=== PATIENT | male | born 1965 | race Caucasian/White ===

== ENCOUNTER 2016-11-21 02:00 | Inpatient (IN) | payer MEDICARE, OTHER ==
[2016-11-21] MEDS ORDERED: HYDROmorphone 1 MG/ML 1 ML SYRINGE IVP STA ×2 (02:33→04:25)
[2016-11-21] MEDS ORDERED: SODIUM CHLORIDE 0.9% 1,000 ML IV STA (02:33)
[2016-11-21] MEDS ORDERED: ONDANSETRON 4 MG/2 ML VIAL IVP STA (02:33)
[2016-11-21 02:56] LABS: Basophils # (A) 0.1 k/uL (0-0.2); Basophils % (A) 0 %; CH 37.3; CHCM 34.8; Eosinophils # (A) 0.1 k/uL (0-0.7); Eosinophils % (A) 1 %; HCT 37.6 % (39.0-53.0); HDW 2.08; HGB 12.8 gm/dL (13.0-17.5); Luc # (Auto) 0.24; Luc % (Auto) 2; Lymphocytes # (A) 1.5 k/uL (1.0-4.8); Lymphocytes % (A) 12 %; MCH 36.5 pg (25.0-35.0); MCHC 33.9 g/dL (31.0-37.0); MCV 107.6 fL (80.0-100.0); Macrocytosis Moderate; Mean Platelet Volume 8.4; Monocytes # (A) 1.3 k/uL (0-1.0); Monocytes % (A) 10 %; Neutrophils # (A) 9.3 k/uL (1.3-7.7); Neutrophils % (A) 75 %; RDW 14.8 % (11.5-15.5); WBC 12.4 k/uL (3.8-10.6); WBC (Perox) 12.88
[2016-11-21] MEDS ORDERED: RX INFO: IV CONTRAST WAS GIVEN 1 EACH MISC MISCELLANE PRN (03:05)
--- NOTE | 2016-11-21 03:07 | ED ---
General Adult HPI - General Source: patient, RN notes reviewed Mode of arrival: wheelchair Limitations: no limitations <Gabi Malcolm - Last Filed: 11/21/16 04:07> <Josué Bergeron - Last Filed: 11/21/16 05:37> - General Chief complaint: Abdominal Pain Stated complaint: abd pain Time Seen by Provider: 11/21/16 02:33 - History of Present Illness Initial comments: 50-year-old male presents to the emergency Department chief complaint abdominal pain. Patient states she been going on for about 2 days with nausea vomiting and looser stool. Patient states he has episodes where his abdominal pain flares up and they never seem to find the cause. Patient denies any fever or chills. Patient states is worse with his typical flareup. Patient states that she's diffusely in the abdomen and radiates to both sides of the back.Patient denies any recent fever, chills, shortness of breath, chest pain, back pain, numbness or tingling, dysuria or hematuria, constipation or diarrhea, headaches or visual changes, or any other current symptoms. (Gabi Malcolm) - Related Data Home Medications Medication Instructions Recorded Confirmed FLUoxetine HCL [PROzac] 40 mg PO BID 01/17/16 01/17/16 clonazePAM [KlonoPIN] 0.5 mg PO BID 01/17/16 01/17/16 Allergies Allergy/AdvReac Type Severity Reaction Status Date / Time No Known Allergies Allergy Verified 11/21/16 02:21 Review of Systems ROS Other: All systems not noted in ROS Statement are negative. <Gabi Malcolm - Last Filed: 11/21/16 04:07> ROS Other: All systems not noted in ROS Statement are negative. <Josué Bergeron - Last Filed: 11/21/16 05:37> ROS Statement: Those systems with pertinent positive or pertinent negative responses have been documented in the HPI. Past Medical History Additional Past Medical History / Comment(s): back deteriorating spine History of Any Multi-Drug Resistant Organisms: None Reported Past Surgical History: No Surgical Hx Reported Past Psychological History: No Psychological Hx Reported Smoking Status: Current every day smoker Past Alcohol Use History: Occasional Past Drug Use History: None Reported <Gabi Malcolm - Last Filed: 11/21/16 04:07> General Exam Limitations: no limitations <Gabi Malcolm - Last Filed: 11/21/16 04:07> Course <Gabi Malcolm - Last Filed: 11/21/16 04:07> <Josué Bergeron - Last Filed: 11/21/16 05:37> Vital Signs 11/21/16 11/21/16 11/21/16 02:19 03:29 04:22 Temperature 99.3 F Pulse Rate 99 95 94 Respiratory 16 18 20 Rate Blood Pressure 150/81 182/90 174/93 O2 Sat by Pulse 100 99 100 Oximetry - Reevaluation(s) Reevaluation #1: 11/21/16 03:52 On further questioning the patient does admit to history of alcohol abuse in the past. He states he did have a drink today which did happen prior to the increased abdominal pain and nausea vomiting. (Gabi Malcolm) Reevaluation #2: 11/21/16 04:07 This case will be signed out to Dr. Bergeron. (Gabi Malcolm) Medical Decision Making - Lab Data Result diagrams: 11/21/16 02:45 11/21/16 02:45 <Gabi Malcolm - Last Filed: 11/21/16 04:07> - Lab Data Result diagrams: 11/21/16 02:45 11/21/16 02:45 <Josué Bergeron - Last Filed: 11/21/16 05:37> - Medical Decision Making 50-year-old male presents for diffuse abdominal pain. (Gabi Malcolm) 50-year-old male presents with nausea vomiting and epigastric abdominal pain. Patient is tender in the epigastrium, no rebound or guarding. He does admit to drinking alcohol the past 24 hours. He has no history of pancreatitis. Laboratory studies reveal a mildly elevated white blood cell count 0.5, hemoglobin is stable. Lipase is elevated at 786, as well as amylase. CT is obtained and does show fat stranding adjacent to the pancreatic head as well as a pancreatic pseudocyst. Patient will be admitted for symptomatically treatment. He'll be kept nothing by mouth. General surgery is placed on consult. Diagnosis: Acute pancreatitis, with pseudocyst (Josué Bergeron) - Lab Data Lab Results 11/21/16 11/21/16 11/21/16 Range/Units 02:45 02:45 02:45 WBC 12.4 H (3.8-10.6) k/uL RBC 3.50 L (4.30-5.90) m/uL Hgb 12.8 L (13.0-17.5) gm/dL Hct 37.6 L (39.0-53.0) % MCV 107.6 H (80.0-100.0) fL MCH 36.5 H (25.0-35.0) pg MCHC 33.9 (31.0-37.0) g/dL RDW 14.8 (11.5-15.5) % Plt Count 381 (150-450) k/uL Neutrophils % 75 % Lymphocytes % 12 % Monocytes % 10 % Eosinophils % 1 % Basophils % 0 % Neutrophils # 9.3 H (1.3-7.7) k/uL Lymphocytes # 1.5 (1.0-4.8) k/uL Monocytes # 1.3 H (0-1.0) k/uL Eosinophils # 0.1 (0-0.7) k/uL Basophils # 0.1 (0-0.2) k/uL Macrocytosis Moderate Sodium 135 L (137-145) mmol/L Potassium 4.1 (3.5-5.1) mmol/L Chloride 102 (98-107) mmol/L Carbon Dioxide 22 (22-30) mmol/L Anion Gap 11 mmol/L BUN 7 L (9-20) mg/dL Creatinine 0.60 L (0.66-1.25) mg/dL Est GFR (MDRD) Af Amer >60 (>60 ml/min/1.73 sqM) Est GFR (MDRD) Non-Af >60 (>60 ml/min/1.73 sqM) Glucose 107 H (74-99) mg/dL Plasma Lactic Acid Jamel 0.6 L (0.7-2.0) mmol/L Calcium 10.1 (8.4-10.2) mg/dL Total Bilirubin 0.3 (0.2-1.3) mg/dL AST 24 (17-59) U/L ALT 46 (21-72) U/L Alkaline Phosphatase 90 (38-126) U/L Total Protein 7.2 (6.3-8.2) g/dL Albumin 4.3 (3.5-5.0) g/dL Amylase 354 H* (30-110) U/L Lipase 786 H (23-300) U/L Urine Color Urine Appearance (Clear) Urine pH (5.0-8.0) Ur Specific [place] (1.001-1.035) Urine Protein (Negative) Urine Glucose (UA) (Negative) Urine Ketones (Negative) Urine Blood (Negative) Urine Nitrite (Negative) Urine Bilirubin (Negative) Urine Urobilinogen (<2.0) mg/dL Ur Leukocyte Esterase (Negative) Stool Occult Blood (Negative) 11/21/16 11/21/16 Range/Units 02:45 03:58 WBC (3.8-10.6) k/uL RBC (4.30-5.90) m/uL Hgb (13.0-17.5) gm/dL Hct (39.0-53.0) % MCV (80.0-100.0) fL MCH (25.0-35.0) pg MCHC (31.0-37.0) g/dL RDW (11.5-15.5) % Plt Count (150-450) k/uL Neutrophils % % Lymphocytes % % Monocytes % % Eosinophils % % Basophils % % Neutrophils # (1.3-7.7) k/uL Lymphocytes # (1.0-4.8) k/uL Monocytes # (0-1.0) k/uL Eosinophils # (0-0.7) k/uL Basophils # (0-0.2) k/uL Macrocytosis Sodium (137-145) mmol/L Potassium (3.5-5.1) mmol/L Chloride (98-107) mmol/L Carbon Dioxide (22-30) mmol/L Anion Gap mmol/L BUN (9-20) mg/dL Creatinine (0.66-1.25) mg/dL Est GFR (MDRD) Af Amer (>60 ml/min/1.73 sqM) Est GFR (MDRD) Non-Af (>60 ml/min/1.73 sqM) Glucose (74-99) mg/dL Plasma Lactic Acid Jamel (0.7-2.0) mmol/L Calcium (8.4-10.2) mg/dL Total Bilirubin (0.2-1.3) mg/dL AST (17-59) U/L ALT (21-72) U/L Alkaline Phosphatase (38-126) U/L Total Protein (6.3-8.2) g/dL Albumin (3.5-5.0) g/dL Amylase (30-110) U/L Lipase (23-300) U/L Urine Color Light Yellow Urine Appearance Clear (Clear) Urine pH 6.5 (5.0-8.0) Ur Specific [place] 1.050 H (1.001-1.035) Urine Protein Trace H (Negative) Urine Glucose (UA) Negative (Negative) Urine Ketones 1+ H (Negative) Urine Blood Negative (Negative) Urine Nitrite Negative (Negative) Urine Bilirubin Negative (Negative) Urine Urobilinogen <2.0 (<2.0) mg/dL Ur Leukocyte Esterase Negative (Negative) Stool Occult Blood Negative (Negative) Disposition <Gabi Malcolm - Last Filed: 11/21/16 04:07> Decision to Admit Reason: Admit from EC Decision Date: 11/21/16 Decision Time: 03:30 <Josué Bergeron - Last Filed: 11/21/16 05:37> Clinical Impression: Pancreatitis, Pancreatic pseudocyst Disposition: ADMITTED IP TO THIS [facility] Condition: Stable Referrals: Jessica Samuels DO [Primary Care Provider] - 1-2 days
[2016-11-21 03:09] LABS: ALT 46 U/L (21-72); AST 24 U/L (17-59); Alkaline Phosphatase 90 U/L (38-126); Anion Gap 11 mmol/L; Blood Urea Nitrogen 7 mg/dL (9-20); Calcium 10.1 mg/dL (8.4-10.2); Carbon Dioxide 22 mmol/L (22-30); Chloride 102 mmol/L (98-107); Glucose 107 mg/dL (74-99); Non-African American GFR(MDRD) >60 (>60 ml/min/1.73 sqM); Potassium 4.1 mmol/L (3.5-5.1); Sodium 135 mmol/L (137-145); Total Bilirubin 0.3 mg/dL (0.2-1.3); Total Protein 7.2 g/dL (6.3-8.2)
[2016-11-21 03:17] LABS: Amylase 354 U/L (30-110)
[2016-11-21 04:05] LABS: Appearance,Urine Clear (Clear); Bilirubin,Urine Negative (Negative); Glucose,Urine (UA) Negative (Negative); Ketones,Urine 1+ (Negative); Leukocyte Esterase,Urine Negative (Negative); Nitrite,Urine Negative (Negative); PH, Urine 6.5 (5.0-8.0); Protein,Urine Trace (Negative); UA Billing (MACRO vs. MICRO) CHEM; Urobilinogen,Urine <2.0 mg/dL (<2.0)
--- NOTE | 2016-11-21 05:14 | CT ---
EXAM: CT Abdomen and Pelvis With Intravenous Contrast CLINICAL HISTORY: Pain. TECHNIQUE: Axial computed tomography images of the abdomen and pelvis with intravenous contrast. Coronal and sagittal reformatted images were created and reviewed. CTDI is 5.00 mGy and DLP is 379.10 mGy-cm. This CT exam was performed using one or more of the following dose reduction techniques: automated exposure control, adjustment of the mA and/or kV according to patient size, and/or use of iterative reconstruction technique. COMPARISON: No relevant prior studies available. FINDINGS: Lower thorax: Left lower lobe granulomas. No acute abnormality in the visualized lower chest. ABDOMEN: Liver: Liver measures 18.2 cm in craniocaudal dimension. Few hepatic granulomas. No evidence of hepatic mass. Gallbladder and bile ducts: Partially contracted gallbladder. No radiopaque gallstones. No biliary dilation. Pancreas: Stranding/fluid adjacent to the pancreatic head with fluid collection inseparable from the pancreatic head measuring approximately 2. 5 x 2.6 x 5.0 cm suspicious for pseudocyst. No significant pancreatic ductal dilation. Spleen: Splenic granulomata. No splenomegaly. Adrenals: Unremarkable. No mass. Kidneys and ureters: No hydronephrosis or ureteral calculus. No enhancing renal mass. Stomach and bowel: No evidence of bowel obstruction. No significant bowel wall thickening. Appendix: Appendix not visualized. PELVIS: Bladder: Mild bladder wall thickening. Reproductive: Prostate not well seen due to artifact. ABDOMEN and PELVIS: Intraperitoneal space: No free air. No significant ascites. Bones/joints: Total hip arthroplasties bilaterally with associated artifact. No evidence of acute fracture. Soft tissues: Unremarkable. Vasculature: Atherosclerotic vascular disease. No abdominal aortic aneurysm. Lymph nodes: Subcentimeter peripancreatic lymph nodes are present. No significant lymphadenopathy. IMPRESSION: 1. Stranding/fluid adjacent to the pancreatic head with fluid collection inseparable from the pancreatic head measuring approximately 2.5 x 2.6 x 5.0 cm suspicious for pseudocyst. Recommend clinical correlation and correlation with pancreatic enzyme levels. Recommend follow-up imaging to assess for resolution and exclude other underlying pathology. 2. Mild bladder wall thickening which may be related to underdistention or cystitis. Correlate with urinalysis as clinically warranted. 3. No bowel obstruction or free air. Appendix not visualized.
[2016-11-21] MEDS ORDERED: NALOXONE 0.4 MG/ML 1 ML VIAL IV PRN (05:31)
[2016-11-21] MEDS: SODIUM CHLORIDE 0.9% 1,000 ML IV SCH ×3 (05:56→20:52)
[2016-11-21 06:43] VITALS: BMI 19.1
[2016-11-21] MEDS: HYDROmorphone 1 MG/ML 1 ML SYRINGE IV PRN ×6 (07:44→22:58)
[2016-11-21] MEDS: PANTOPRAZOLE 40 MG/10 ML VIAL IV SCH (07:46)
[2016-11-21] MEDS ORDERED: GABAPENTIN 300 MG CAP PO PRN (12:32)
--- NOTE | 2016-11-21 12:35 | P.HPIM ---
History of Present Illness H&P Date: 11/21/16 Chief Complaint: Abdominal pain This is a 50-year-old gentleman who presented to the hospital with severe abdominal pain. Patient said that is been having issues with pain on and off for the past year. For the past 2 days he noted that his pain was getting significantly worse. He describe as pain as sharp and 10 out of 10 in severity. He said that the pain is all over his abdomen. This pain was associated with severe nausea and one episode of vomiting. He said that he's having normal bowel movement otherwise. He reported a heavy alcohol abuse history for many many years. That he said for the past 10 years he was cutting down and currently is only drinking 1 beer maybe once a week. He said that he was never diagnosed with any problems in his abdomen in the past and was never hospitalized for several problems. He was evaluated in the emergency room and was found to have symptoms of acute pancreatitis and was admitted to the hospital for further evaluation. Review of Systems Review of system: 14 points review of systems were obtained and were negative except to what were mentioned in the HPI. Past Medical History Past Medical History: COPD Additional Past Medical History / Comment(s): back deteriorating spine History of Any Multi-Drug Resistant Organisms: None Reported Past Surgical History: No Surgical Hx Reported, Orthopedic Surgery Additional Past Surgical History / Comment(s): both hips replaced 2016 Past Psychological History: No Psychological Hx Reported Smoking Status: Current every day smoker Past Alcohol Use History: Occasional Past Drug Use History: None Reported Medications and Allergies Home Medications Medication Instructions Recorded Confirmed Type Albuterol Sulfate [Proair Hfa] 2 puff INHALATION RT-Q6H PRN 11/21/16 11/21/16 History Anxiety Med Unknown 1 tab PO BID 11/21/16 11/21/16 History Budesonide-Formot 160-4.5 Mcg 1 puff INHALATION RT-BID 11/21/16 11/21/16 History [Symbicort 160-4.5 Mcg Inhaler] Divalproex [Depakote] 500 mg PO BID 11/21/16 11/21/16 History Gabapentin [Neurontin] 300 mg PO BID PRN 11/21/16 11/21/16 History Hydrocodone/Acetaminophen [[place] 1 tab PO Q4H PRN 11/21/16 11/21/16 History 10-325] Allergies Allergy/AdvReac Type Severity Reaction Status Date / Time No Known Allergies Allergy Verified 11/21/16 09:02 Physical Exam Vitals: Vital Signs Temp Pulse Pulse Resp BP BP Pulse Ox 11/21/16 06:26 98.3 F 95 16 146/91 100 11/21/16 04:22 94 20 174/93 100 11/21/16 03:29 95 18 182/90 99 11/21/16 02:19 99.3 F 99 16 150/81 100 Intake and Output 11/20/16 11/21/16 11/21/16 22:59 06:59 14:59 Other: Voiding Method Toilet Urinal Weight 52.163 kg General: The patient is awake and alert, in no distress Eye: there is normal conjunctiva bilaterally. Neck: The neck is supple, there is no JVD. Cardiovascular: Normal S1-S2, no S3-S4, no murmurs. Respiratory: Lungs clear to auscultation bilaterally Gastrointestinal: Abdomen is soft, with moderate tenderness to palpation all over the abdomen Musculoskeletal: There is no pedal edema. Neurological:. Speech is normal. Skin: Skin is warm and dry Results CBC & Chem 7: 11/21/16 02:45 11/21/16 02:45 Labs: Abnormal Lab Results - Last 24 Hours (Table) 11/21/16 11/21/16 11/21/16 Range/Units 02:45 02:45 02:45 WBC 12.4 H (3.8-10.6) k/uL RBC 3.50 L (4.30-5.90) m/uL Hgb 12.8 L (13.0-17.5) gm/dL Hct 37.6 L (39.0-53.0) % MCV 107.6 H (80.0-100.0) fL MCH 36.5 H (25.0-35.0) pg Neutrophils # 9.3 H (1.3-7.7) k/uL Monocytes # 1.3 H (0-1.0) k/uL Sodium 135 L (137-145) mmol/L BUN 7 L (9-20) mg/dL Creatinine 0.60 L (0.66-1.25) mg/dL Glucose 107 H (74-99) mg/dL Plasma Lactic Acid Jamel 0.6 L (0.7-2.0) mmol/L Amylase 354 H* (30-110) U/L Lipase 786 H (23-300) U/L Ur Specific [place] (1.001-1.035) Urine Protein (Negative) Urine Ketones (Negative) 11/21/16 Range/Units 03:58 WBC (3.8-10.6) k/uL RBC (4.30-5.90) m/uL Hgb (13.0-17.5) gm/dL Hct (39.0-53.0) % MCV (80.0-100.0) fL MCH (25.0-35.0) pg Neutrophils # (1.3-7.7) k/uL Monocytes # (0-1.0) k/uL Sodium (137-145) mmol/L BUN (9-20) mg/dL Creatinine (0.66-1.25) mg/dL Glucose (74-99) mg/dL Plasma Lactic Acid Jamel (0.7-2.0) mmol/L Amylase (30-110) U/L Lipase (23-300) U/L Ur Specific [place] 1.050 H (1.001-1.035) Urine Protein Trace H (Negative) Urine Ketones 1+ H (Negative) Thrombosis Risk Factor Assmnt - Choose All That Apply Each Factor Represents 1 point: Abnormal pulmonary function (COPD), Age 41-60 years Thrombosis Risk Factor Assessment Total Risk Factor Score: 2 Thrombosis Risk Factor Assessment Level: Low Risk Assessment and Plan Plan: 1. Acute pancreatitis 2. Suspected large pseudocyst on computed tomography scan of the abdomen 3. History of heavy alcohol abuse Today, I reviewed his medication list the lab work results. Continue nothing by mouth. IV fluid hydration. Antiemetic and pain control as needed. Awaiting general surgery evaluation. We'll check fasting lipid profile to rule out hypertriglyceridemia. I would wait on ordering ultrasound of the liver until seen by surgery. Repeat lab work in the morning.
[2016-11-21] MEDS: ONDANSETRON 4 MG/2 ML VIAL IVP PRN (16:51)
[2016-11-21] MEDS: HEPARIN SODIUM,PORCINE 5,000 UNIT/ML 1 ML VIAL SQ SCH (20:52)
[2016-11-21] MEDS: DIVALPROEX 500 MG TABLET.DR PO SCH (20:52)
[2016-11-22] MEDS: ONDANSETRON 4 MG/2 ML VIAL IVP PRN ×3 (00:58→19:48)
[2016-11-22] MEDS: HYDROmorphone 1 MG/ML 1 ML SYRINGE IV PRN ×5 (01:47→16:16)
[2016-11-22] MEDS: SODIUM CHLORIDE 0.9% 1,000 ML IV SCH ×4 (04:37→19:44)
[2016-11-22 08:18] LABS: ALT 41 U/L (21-72); AST 30 U/L (17-59); Alkaline Phosphatase 74 U/L (38-126); Anion Gap 8 mmol/L; Blood Urea Nitrogen 4 mg/dL (9-20); Carbon Dioxide 24 mmol/L (22-30); Chloride 107 mmol/L (98-107); Cholesterol 157 mg/dL (<200); Glucose 52 mg/dL (74-99); HDL Cholesterol 47 mg/dL (40-60); Non-African American GFR(MDRD) >60 (>60 ml/min/1.73 sqM); Potassium 4.8 mmol/L (3.5-5.1); Sodium 139 mmol/L (137-145); Total Bilirubin 0.6 mg/dL (0.2-1.3); Total Protein 6.3 g/dL (6.3-8.2)
[2016-11-22 08:28] LABS: Basophils # (A) 0.1 k/uL (0-0.2); Basophils % (A) 1 %; CH 35.6; CHCM 32.5; Eosinophils # (A) 0.1 k/uL (0-0.7); Eosinophils % (A) 1 %; HCT 33.7 % (39.0-53.0); HGB 11.3 gm/dL (13.0-17.5); Luc # (Auto) 0.27; Luc % (Auto) 5; Lymphocytes # (A) 2.3 k/uL (1.0-4.8); Lymphocytes % (A) 37 %; MCH 36.6 pg (25.0-35.0); MCHC 33.4 g/dL (31.0-37.0); MCV 109.7 fL (80.0-100.0); Macrocytosis Marked; Monocytes # (A) 0.7 k/uL (0-1.0); Monocytes % (A) 12 %; Neutrophils # (A) 2.8 k/uL (1.3-7.7); Neutrophils % (A) 45 %; RBC 3.07 m/uL (4.30-5.90); RDW 14.1 % (11.5-15.5); WBC 6.1 k/uL (3.8-10.6); WBC (Perox) 6.18
[2016-11-22] MEDS: DIVALPROEX 500 MG TABLET.DR PO SCH ×2 (09:59→20:00)
[2016-11-22] MEDS: HEPARIN SODIUM,PORCINE 5,000 UNIT/ML 1 ML VIAL SQ SCH ×2 (11:01→20:00)
[2016-11-22] MEDS: PANTOPRAZOLE 40 MG/10 ML VIAL IV SCH (11:03)
[2016-11-22 15:01] VITALS: BP 91/54; PULSE 85; RESP 16; TEMP 97.6
--- NOTE | 2016-11-22 17:21 | P.GSCN ---
History of Present Illness Consult date: 11/22/16 Reason for Consult: pancreatitis History of present illness: this is a 50-year-old male who sees Dr. Jessica Samuels is an outpatient. Patient was admitted to the hospital under Dr. gunn service. Patient has a admitting diagnosis proctitis. He describes epigastric pain on admission. He states his pain is slightly improved. Review of Systems - Constitutional Reports as per HPI Past Medical History Past Medical History: COPD Additional Past Medical History / Comment(s): back deteriorating spine History of Any Multi-Drug Resistant Organisms: None Reported Past Surgical History: No Surgical Hx Reported, Orthopedic Surgery Additional Past Surgical History / Comment(s): both hips replaced 2016 Past Psychological History: No Psychological Hx Reported Smoking Status: Current every day smoker Past Alcohol Use History: Occasional Past Drug Use History: None Reported Medications and Allergies Home Medications Medication Instructions Recorded Confirmed Type Albuterol Sulfate [Proair Hfa] 2 puff INHALATION RT-Q6H PRN 11/21/16 11/22/16 History Budesonide-Formot 160-4.5 Mcg 1 puff INHALATION RT-BID 11/21/16 11/22/16 History [Symbicort 160-4.5 Mcg Inhaler] Divalproex [Depakote] 500 mg PO BID 11/21/16 11/22/16 History Gabapentin [Neurontin] 300 mg PO BID PRN 11/21/16 11/22/16 History Hydrocodone/Acetaminophen [[place] 1 tab PO Q4H PRN 11/21/16 11/22/16 History 10-325] OXcarbazepine [Trileptal] 300 mg PO BID 11/22/16 11/22/16 History Omeprazole 20 mg PO DAILY 11/22/16 11/22/16 History Sertraline [Zoloft] 100 mg PO DAILY 11/22/16 11/22/16 History tiZANidine HCL [Zanaflex] 4 mg PO BID PRN 11/22/16 11/22/16 History Allergies Allergy/AdvReac Type Severity Reaction Status Date / Time No Known Allergies Allergy Verified 11/21/16 09:02 Surgical - Exam Vital Signs Temp Pulse Resp BP Pulse Ox 99.3 F 99 16 150/81 100 11/21/16 02:19 11/21/16 02:19 11/21/16 02:19 11/21/16 02:19 11/21/16 02:19 - General well developed, no distress - Eyes PERRL - ENT normal pinna - Neck no masses - Respiratory normal expansion - Cardiovascular Rhythm: regular - Abdomen mild epigastric tenderness Abdomen: soft Results - Labs 11/22/16 07:12 11/22/16 07:12 Abnormal Lab Results - Last 24 Hours (Table) 11/22/16 11/22/16 Range/Units 07:12 07:12 RBC 3.07 L (4.30-5.90) m/uL Hgb 11.3 L (13.0-17.5) gm/dL Hct 33.7 L (39.0-53.0) % MCV 109.7 H (80.0-100.0) fL MCH 36.6 H (25.0-35.0) pg BUN 4 L (9-20) mg/dL Creatinine 0.60 L (0.66-1.25) mg/dL Glucose 52 L (74-99) mg/dL Microbiology - Last 24 Hours (Table) 11/21/16 02:45 Blood Culture - Preliminary Blood No Growth after 24 hours Diabetes panel 11/22/16 Range/Units 07:12 Sodium 139 (137-145) mmol/L Potassium 4.8 (3.5-5.1) mmol/L Chloride 107 (98-107) mmol/L Carbon Dioxide 24 (22-30) mmol/L BUN 4 L (9-20) mg/dL Creatinine 0.60 L (0.66-1.25) mg/dL Glucose 52 L (74-99) mg/dL Calcium 9.0 (8.4-10.2) mg/dL AST 30 (17-59) U/L ALT 41 (21-72) U/L Alkaline Phosphatase 74 (38-126) U/L Total Protein 6.3 (6.3-8.2) g/dL Albumin 3.6 (3.5-5.0) g/dL Triglycerides 99 (<150) mg/dL HDL Cholesterol 47 (40-60) mg/dL Calcium panel 11/22/16 Range/Units 07:12 Calcium 9.0 (8.4-10.2) mg/dL Albumin 3.6 (3.5-5.0) g/dL Pituitary panel 11/22/16 Range/Units 07:12 Sodium 139 (137-145) mmol/L Potassium 4.8 (3.5-5.1) mmol/L Chloride 107 (98-107) mmol/L Carbon Dioxide 24 (22-30) mmol/L BUN 4 L (9-20) mg/dL Creatinine 0.60 L (0.66-1.25) mg/dL Glucose 52 L (74-99) mg/dL Calcium 9.0 (8.4-10.2) mg/dL Adrenal panel 11/22/16 Range/Units 07:12 Sodium 139 (137-145) mmol/L Potassium 4.8 (3.5-5.1) mmol/L Chloride 107 (98-107) mmol/L Carbon Dioxide 24 (22-30) mmol/L BUN 4 L (9-20) mg/dL Creatinine 0.60 L (0.66-1.25) mg/dL Glucose 52 L (74-99) mg/dL Calcium 9.0 (8.4-10.2) mg/dL Total Bilirubin 0.6 (0.2-1.3) mg/dL AST 30 (17-59) U/L ALT 41 (21-72) U/L Alkaline Phosphatase 74 (38-126) U/L Total Protein 6.3 (6.3-8.2) g/dL Albumin 3.6 (3.5-5.0) g/dL - Imaging CT scan - abdomen: report reviewed (evidence of pancreatitis with pseudocyst formation) Assessment and Plan Plan: resolving pancreatitis with pseudocyst formation. Patient will start clear liquid diet today. He should have a another CAT scan performed in several weeks to document regression of a pseudocyst. We will follow with you.
--- NOTE | 2016-11-22 18:46 | P.PN ---
Subjective Principal diagnosis: Acute pancreatitis with pseudocyst Patient is a 50-year-old male presenting to [facility] with abdominal pain and vomiting Patient had elevated amylase and lipase suggestive of acute pancreatitis, computed tomography scan of the abdomen and pelvis was positive for evidence of pseudocyst. Patient was kept nothing by mouth he was started on clear liquid diet this evening. Patient has a known history of alcohol abuse he was counseled in length in regard to quitting alcohol. Clinically patient is doing better he is alert and oriented, abdominal pain and vomiting improved since yesterday Objective - Vital Signs Vital signs: Vital Signs Temp 97.6 F 11/22/16 15:00 Pulse 85 11/22/16 15:13 Resp 16 11/22/16 15:13 BP 91/54 11/22/16 15:00 Pulse Ox 91 L 11/22/16 15:00 Intake & Output 11/21/16 11/22/16 11/22/16 18:59 06:59 18:59 Intake Total 1000 1520 1258 Balance 1000 1520 1258 Weight 52.163 kg Intake: Intake, IV Titration 1000 1500 658 Amount Sodium Chloride 0.9% 1, 1000 1500 658 000 ml @ 125 mls/hr IV . Q8H LIZA Rx#:[id number] Oral 20 600 Other: Voiding Method Toilet Toilet Toilet Urinal Urinal Urinal # Voids 1 3 - Exam HEENT head normocephalic and atraumatic Neck is supple no JVD no goiter no lymphadenopathy Chest exam reveals a few scattered crackles no wheezing Cardiac exam reveals regular heart sounds no gallops no murmurs Abdomen is soft with mild tenderness in the epigastric area no organomegaly no palpable masses Extremity exam reveals no edema no cyanosis or clubbing - Labs CBC & Chem 7: 11/22/16 07:12 11/22/16 07:12 Labs: Abnormal Lab Results - Last 24 Hours (Table) 11/22/16 11/22/16 Range/Units 07:12 07:12 RBC 3.07 L (4.30-5.90) m/uL Hgb 11.3 L (13.0-17.5) gm/dL Hct 33.7 L (39.0-53.0) % MCV 109.7 H (80.0-100.0) fL MCH 36.6 H (25.0-35.0) pg BUN 4 L (9-20) mg/dL Creatinine 0.60 L (0.66-1.25) mg/dL Glucose 52 L (74-99) mg/dL Microbiology - Last 24 Hours (Table) 11/21/16 02:45 Blood Culture - Preliminary Blood No Growth after 24 hours Assessment and Plan Plan: #1 acute pancreatitis patient was kept nothing by mouth now he's been started on clear liquid diet will advance diet slowly while keeping an eye on his clinical symptoms and his amylase and lipase. #2 pseudocyst formation this need to be rechecked as outpatient was a computed tomography scan in the next 2-3 months, this will need to be done earlier if patient develops fever severe pain or vomiting again #3 alcohol abuse patient was counseled in length in regards to quitting drinking he seems to understand. And that he is willing to try to quit alcohol. #4 tobacco abuse patient was counseled in length in regards to quitting smoking he is requesting nicotine patch at this time. Will follow during this admission please see orders.
--- NOTE | 2017-01-16 14:06 | P.DS ---
Providers Date of admission: 11/21/16 05:34 Expected date of discharge: 12/22/16 Attending physician: Hector Benavides Consults: 11/21/16 05:32 Consult Physician Urgent Consulting Provider: Hi Chase Consult Reason/Comments: acute pancreatitis with pseudocyst Do you want consulting provider notified?: Yes Primary care physician: Jessica Samuels Hospital Course: discharge diagnosis #1 acute pancreatitis patient was kept nothing by mouth now he's been started on clear liquid diet will advance diet slowly while keeping an eye on his clinical symptoms and his amylase and lipase. #2 pseudocyst formation this need to be rechecked as outpatient was a computed tomography scan in the next 2-3 months, this will need to be done earlier if patient develops fever severe pain or vomiting again #3 alcohol abuse patient was counseled in length in regards to quitting drinking he seems to understand. And that he is willing to try to quit alcohol. #4 tobacco abuse patient was counseled in length in regards to quitting smoking he is requesting nicotine patch at this time. Hospital course Patient is a 50-year-old male presenting to [facility] with abdominal pain and vomiting Patient had elevated amylase and lipase suggestive of acute pancreatitis, computed tomography scan of the abdomen and pelvis was positive for evidence of pseudocyst. Patient was kept nothing by mouth he was started on clear liquid diet this evening. Patient has a known history of alcohol abuse he was counseled in length in regard to quitting alcohol. Patient seen and evaluated by surgical service. Patient left AGAINST MEDICAL ADVICE. Please refer to chart for further details. Please note that I am only dictating this report for Dr. Benavides. I did not see or examine the patient Patient Condition at Discharge: Stable Plan - Discharge Summary New Discharge Prescriptions: No Action Budesonide-Formot 160-4.5 Mcg [Symbicort 160-4.5 Mcg Inhaler] 1 puff INHALATION RT-BID Albuterol Sulfate [Proair Hfa] 2 puff INHALATION RT-Q6H PRN PRN Reason: Shortness Of Breath Hydrocodone/Acetaminophen [[place] 10-325] 1 tab PO Q4H PRN PRN Reason: Pain Divalproex [Depakote] 500 mg PO BID Gabapentin [Neurontin] 300 mg PO BID PRN PRN Reason: Seizures tiZANidine HCL [Zanaflex] 4 mg PO BID PRN PRN Reason: Muscle Spasm Sertraline [Zoloft] 100 mg PO DAILY Omeprazole 20 mg PO DAILY OXcarbazepine [Trileptal] 300 mg PO BID Discharge Medication List Albuterol Sulfate [Proair Hfa] 2 puff INHALATION RT-Q6H PRN 11/21/16 [History] Budesonide-Formot 160-4.5 Mcg [Symbicort 160-4.5 Mcg Inhaler] 1 puff INHALATION RT-BID 11/21/16 [History] Divalproex [Depakote] 500 mg PO BID 11/21/16 [History] Gabapentin [Neurontin] 300 mg PO BID PRN 11/21/16 [History] Hydrocodone/Acetaminophen [[place] 10-325] 1 tab PO Q4H PRN 11/21/16 [History] OXcarbazepine [Trileptal] 300 mg PO BID 11/22/16 [History] Omeprazole 20 mg PO DAILY 11/22/16 [History] Sertraline [Zoloft] 100 mg PO DAILY 11/22/16 [History] tiZANidine HCL [Zanaflex] 4 mg PO BID PRN 11/22/16 [History] Follow up Appointment(s)/Referral(s): Jessica Samuels DO [Primary Care Provider] - 1-2 days Discharge Disposition: Left Against Medical Advice
== END 2016-11-22 21:20 | disposition left against medical advice (07) | DRG 439 ==
LOC: EC 02:00 → OBSVTOIN 05:34 → INTOOBSV 05:34 → 5MS5E 05:34
PROVIDERS: ADMIT Internal Medicine; ATTEND Internal Medicine
DX: K85.90 Acute pancreatitis without necrosis or infection, unspecified (principal); K86.3 Pseudocyst of pancreas; J44.9 Chronic obstructive pulmonary disease, unspecified; F10.10 Alcohol abuse, uncomplicated; F17.200 Nicotine dependence, unspecified, uncomplicated; Z79.899 Other long term (current) drug therapy; Z96.643 Presence of artificial hip joint, bilateral; Z79.51 Long term (current) use of inhaled steroids; Z71.6 Tobacco abuse counseling; Z53.21 Procedure and treatment not carried out due to patient leaving prior to being seen by health care provider; Z79.891 Long term (current) use of opiate analgesic; Z71.41 Alcohol abuse counseling and surveillance of alcoholic
CPT/HCPCS: 36415; 74177; 80053; 80061; 81003; 82150; 82272; 83605; 83690; 85025; 87040; 96361; 96372; 96374; 96375; 96376; 99285

== ENCOUNTER → 2016-12-20 | Outpatient (CLI) | payer MEDICARE, OTHER ==
--- NOTE | 2016-12-20 10:47 | CT ---
EXAMINATION TYPE: CT abdomen pelvis w con DATE OF EXAM: 12/20/2016 COMPARISON: CT abdomen and pelvis November 21, 2016 HISTORY: pancreatitis pseudocyst CT DLP: 759.0 mGycm, Automated Exposure Control for Dose Reduction was Utilized. CONTRAST: CT scan of the abdomen and pelvis is performed with oral and with IV Contrast, patient injected with 100 mL of Omnipaque 300. FINDINGS: LUNG BASES: No significant abnormality is appreciated. LIVER/GB: A few calcifications scattered throughout the liver are redemonstrated. PANCREAS: Pancreas is normal in size and shows homogeneous enhancement without areas of nonenhancemen t identified. Mild surrounding fluid or fat stranding is seen improved from prior. There is redemonst ration of thin-walled cystic lesion in the uncinate process just anterior to aorta and posterior to t he SMV measuring 2.1 x 1.8 cm on axial image 38 x 5 cm craniocaudal dimension on coronal image 29. Le radha is not significantly changed in size or appearance from prior study. No new There is a subcentimeter low dense lesion in the pancreatic head to the right of the pancreatic duct on axial image 46 which is slightly more prominent from prior study. SPLEEN: There are multiple calcifications throughout the spleen redemonstrated. Liver and spleen find ings are consistent with product of old granulomatous disease. ADRENALS: No significant abnormality is seen. KIDNEYS: No significant abnormality is seen. BOWEL: No significant abnormality is seen. PROSTATE/SEMINAL VESICLES: Prostate gland is enlarged in size consistent with BPH, clinical correlati on advised. Mild concentric wall thickening visualized bladder is likely product of enlarged prostate gland, other etiologies not excluded. LYMPH NODES: No greater than 1cm abdominal or pelvic lymph nodes are appreciated. OSSEOUS STRUCTURES: Metallic hardware from bilateral hip arthroplasties is seen causing adjacent stre ak artifact limiting evaluation of pelvic structures. OTHER: Fairly moderate atherosclerotic change of distal abdominal aorta extending into pelvic branch vessels is seen IMPRESSION: Stable moderate-sized thin-walled central cystic lesion within pancreas likely reflecting pseudocyst. Interval improvement in surrounding inflammatory change. Nonspecific subcentimeter low d ense lesion pancreatic head is slightly more prominent and can be followed.
== END | disposition home or self-care (01) ==
LOC: RADCTMAIN 09:07
PROVIDERS: ATTEND Surgery
DX: K86.2 Cyst of pancreas (principal); K86.89 Other specified diseases of pancreas
CPT/HCPCS: 74177; Q9967

== ENCOUNTER 2017-11-09 14:24 | Emergency (ER) | payer MEDICARE, OTHER ==
[2017-11-09] MEDS ORDERED: NITROGLYCERIN OINT 1 INCH/GM PACKET TOPICAL STA (14:57)
[2017-11-09] MEDS ORDERED: ASPIRIN 81 MG PO STA (14:57)
--- NOTE | 2017-11-09 14:59 | ED ---
General Adult HPI - General Chief complaint: Chest Pain Stated complaint: chest pain Time Seen by Provider: 11/09/17 14:25 Source: patient, RN notes reviewed Mode of arrival: wheelchair Limitations: no limitations - History of Present Illness Initial comments: This is a 51-year-old male who presents emergency department with past medical history significant for stroke and a smoking history. Patient denies any diabetes hypertension high". Patient states he has been having intermittent chest pain which radiates down his left arm over the last 5 days. Patient also states been drinking today as well. Patient denies any recent fever chills or cough. Patient denies headache patient denies numbness weakness. Patient denies any lightheadedness or dizziness. Patient denies abdominal pain patient denies nausea vomiting diarrhea. Patient states he does have associated shortness of breath with the pain but he has no diaphoresis and no nausea with it. Patient denies any recent injury or fall. - Related Data Home Medications Medication Instructions Recorded Confirmed Gabapentin [Neurontin] 300 mg PO BID PRN 11/21/16 11/09/17 Hydrocodone/Acetaminophen [[place] 1 tab PO Q4H PRN 11/21/16 11/09/17 10-325] Ibuprofen 800 mg PO Q6H PRN 11/09/17 11/09/17 Allergies Allergy/AdvReac Type Severity Reaction Status Date / Time No Known Allergies Allergy Verified 11/09/17 15:53 Review of Systems ROS Statement: Those systems with pertinent positive or pertinent negative responses have been documented in the HPI. ROS Other: All systems not noted in ROS Statement are negative. Past Medical History Past Medical History: COPD Additional Past Medical History / Comment(s): back deteriorating spine History of Any Multi-Drug Resistant Organisms: None Reported Past Surgical History: No Surgical Hx Reported, Orthopedic Surgery Additional Past Surgical History / Comment(s): both hips replaced 2016 Past Psychological History: No Psychological Hx Reported Smoking Status: Current every day smoker Past Alcohol Use History: Occasional Past Drug Use History: None Reported General Exam - General Exam Comments Initial Comments: GENERAL: Patient is well-developed and well-nourished. Patient is nontoxic and well- hydrated and is in mild distress. ENT: Neck is soft and supple. No significant lymphadenopathy is noted. Oropharynx is clear. Moist mucous membranes. EYES: The sclera were anicteric and conjunctiva were pink and moist. Extraocular movements were intact and pupils were equal round and reactive to light. Eyelids were unremarkable. PULMONARY: Unlabored respirations. Good breath sounds bilaterally. No audible rales rhonchi or wheezing was noted. CARDIOVASCULAR: There is a regular rate and rhythm without any murmurs gallops or rubs. ABDOMEN: Soft and nontender with normal bowel sounds. No palpable organomegaly was noted. There is no palpable pulsatile mass. SKIN: Skin is clear with no lesions or rashes and otherwise unremarkable. NEUROLOGIC: Patient is alert and oriented x3. Cranial nerves II through XII are grossly intact. Motor and sensory are also intact. Normal speech, volume and content. Symmetrical smile. MUSCULOSKELETAL: Normal extremities with adequate strength and full range of motion. No lower extremity swelling or edema. No calf tenderness. LYMPHATICS: No significant lymphadenopathy is noted PSYCHIATRIC: Normal psychiatric evaluation. Normal interpersonal interactions appears functionally intact in deals appropriately with others. No signs of depression. No signs of anxiety. Limitations: no limitations Course Vital Signs 11/09/17 11/09/17 11/09/17 14:28 14:44 15:15 Temperature 98.3 F Pulse Rate 99 98 Respiratory 16 18 20 Rate Blood Pressure 136/80 142/84 O2 Sat by Pulse 99 98 Oximetry Medical Decision Making - Medical Decision Making EKG shows normal sinus rhythm at 95 bpm UT interval 156 QRS is 114 QT interval 364 QTC is 457. Patient's EKG shows no ST segment elevation or depression or T wave abnormalities are noted. Chest x-ray shows no acute abnormality. I spoke with Dr. Benavides he agreed to that the patient admitted the patient started heparin and I wrote admitting orders. I consult cardiology. - Lab Data Result diagrams: 11/09/17 14:48 11/09/17 14:48 Lab Results 11/09/17 11/09/17 11/09/17 Range/Units 14:48 14:48 14:48 WBC 7.1 (3.8-10.6) k/uL RBC 3.38 L (4.30-5.90) m/uL Hgb 11.7 L (13.0-17.5) gm/dL Hct 34.1 L (39.0-53.0) % MCV 101.1 H (80.0-100.0) fL MCH 34.6 (25.0-35.0) pg MCHC 34.2 (31.0-37.0) g/dL RDW 14.6 (11.5-15.5) % Plt Count 240 (150-450) k/uL Neutrophils % 59 % Lymphocytes % 30 % Monocytes % 8 % Eosinophils % 1 % Basophils % 1 % Neutrophils # 4.1 (1.3-7.7) k/uL Lymphocytes # 2.1 (1.0-4.8) k/uL Monocytes # 0.6 (0-1.0) k/uL Eosinophils # 0.1 (0-0.7) k/uL Basophils # 0.0 (0-0.2) k/uL Macrocytosis Slight PT (9.0-12.0) sec INR (<1.2) APTT (22.0-30.0) sec Sodium 131 L (137-145) mmol/L Potassium 3.8 (3.5-5.1) mmol/L Chloride 96 L (98-107) mmol/L Carbon Dioxide 19 L (22-30) mmol/L Anion Gap 16 mmol/L BUN 3 L (9-20) mg/dL Creatinine 0.59 L (0.66-1.25) mg/dL Est GFR (CKD-EPI)AfAm >90 (>60 ml/min/1.73 sqM) Est GFR (CKD-EPI)NonAf >90 (>60 ml/min/1.73 sqM) Glucose 89 (74-99) mg/dL Calcium 9.4 (8.4-10.2) mg/dL Magnesium 1.6 (1.6-2.3) mg/dL Total Bilirubin 0.5 (0.2-1.3) mg/dL AST 74 H (17-59) U/L ALT 45 (21-72) U/L Alkaline Phosphatase 71 (38-126) U/L Total Creatine Kinase 289 H (55-170) U/L CK-MB (CK-2) 1.2 (0.0-2.4) ng/mL CK-MB (CK-2) Rel Index 0.4 Troponin I <0.012 (0.000-0.034) ng/mL Total Protein 7.2 (6.3-8.2) g/dL Albumin 4.3 (3.5-5.0) g/dL 08/23/18 Range/Units 14:48 WBC (3.8-10.6) k/uL RBC (4.30-5.90) m/uL Hgb (13.0-17.5) gm/dL Hct (39.0-53.0) % MCV (80.0-100.0) fL MCH (25.0-35.0) pg MCHC (31.0-37.0) g/dL RDW (11.5-15.5) % Plt Count (150-450) k/uL Neutrophils % % Lymphocytes % % Monocytes % % Eosinophils % % Basophils % % Neutrophils # (1.3-7.7) k/uL Lymphocytes # (1.0-4.8) k/uL Monocytes # (0-1.0) k/uL Eosinophils # (0-0.7) k/uL Basophils # (0-0.2) k/uL Macrocytosis PT 10.2 (9.0-12.0) sec INR 1.0 (<1.2) APTT 26.3 (22.0-30.0) sec Sodium (137-145) mmol/L Potassium (3.5-5.1) mmol/L Chloride (98-107) mmol/L Carbon Dioxide (22-30) mmol/L Anion Gap mmol/L BUN (9-20) mg/dL Creatinine (0.66-1.25) mg/dL Est GFR (CKD-EPI)AfAm (>60 ml/min/1.73 sqM) Est GFR (CKD-EPI)NonAf (>60 ml/min/1.73 sqM) Glucose (74-99) mg/dL Calcium (8.4-10.2) mg/dL Magnesium (1.6-2.3) mg/dL Total Bilirubin (0.2-1.3) mg/dL AST (17-59) U/L ALT (21-72) U/L Alkaline Phosphatase (38-126) U/L Total Creatine Kinase (55-170) U/L CK-MB (CK-2) (0.0-2.4) ng/mL CK-MB (CK-2) Rel Index Troponin I (0.000-0.034) ng/mL Total Protein (6.3-8.2) g/dL Albumin (3.5-5.0) g/dL Disposition Clinical Impression: Unstable angina pectoris Disposition: ADMITTED IP TO THIS HOSP Referrals: Jessica Samuels DO [Primary Care Provider] - 1-2 days Time of Disposition: 16:07
--- NOTE | 2017-11-09 15:13 | XR ---
EXAMINATION TYPE: XR chest 2V DATE OF EXAM: 11/09/2017 COMPARISON: 07/10/2010 INDICATION: Chest pain TECHNIQUE: Frontal and lateral views of the chest are obtained. FINDINGS: The heart size is normal. The pulmonary vasculature is normal. The lungs are clear. There is hyperinflation and flattening the diaphragms with slight increase in A P diameter compatible COPD. Clinical correlation recommended. IMPRESSION: 1. No acute pulmonary process. 2. Hyperinflation. Correlate for early COPD.
[2017-11-09 15:16] LABS: Basophils % (A) 1 %; Eosinophils # (A) 0.1 k/uL (0-0.7); Eosinophils % (A) 1 %; HCT 34.1 % (39.0-53.0); HGB 11.7 gm/dL (13.0-17.5); Lymphocytes # (A) 2.1 k/uL (1.0-4.8); Lymphocytes % (A) 30 %; MCH 34.6 pg (25.0-35.0); MCHC 34.2 g/dL (31.0-37.0); MCV 101.1 fL (80.0-100.0); Macrocytosis Slight; Mean Platelet Volume 7.2; Monocytes # (A) 0.6 k/uL (0-1.0); Monocytes % (A) 8 %; Neutrophils # (A) 4.1 k/uL (1.3-7.7); Neutrophils % (A) 59 %; Platelet Count 240 k/uL (150-450); RBC 3.38 m/uL (4.30-5.90); RDW 14.6 % (11.5-15.5); WBC 7.1 k/uL (3.8-10.6)
[2017-11-09 15:22] LABS: Partial Thromboplastin Time 26.3 sec (22.0-30.0); Prothrombin Time 10.2 sec (9.0-12.0)
[2017-11-09 15:24] LABS: ALT 45 U/L (21-72); AST 74 U/L (17-59); Albumin 4.3 g/dL (3.5-5.0); Alkaline Phosphatase 71 U/L (38-126); Anion Gap 16 mmol/L; Blood Urea Nitrogen 3 mg/dL (9-20); Calcium 9.4 mg/dL (8.4-10.2); Carbon Dioxide 19 mmol/L (22-30); Chloride 96 mmol/L (98-107); Glucose 89 mg/dL (74-99); Magnesium 1.6 mg/dL (1.6-2.3); Potassium 3.8 mmol/L (3.5-5.1); Sodium 131 mmol/L (137-145); Total Bilirubin 0.5 mg/dL (0.2-1.3); Total Protein 7.2 g/dL (6.3-8.2)
[2017-11-09 15:33] LABS: Creatine Kinase 289 U/L (55-170)
[2017-11-09 15:46] LABS: Creatine Kinase MB 1.2 ng/mL (0.0-2.4); Troponin I <0.012 ng/mL (0.000-0.034)
[2017-11-09] MEDS ORDERED: HEPARIN SODIUM,PORCINE 5,000 UNIT/ML 1 ML VIAL IV ONE (16:05)
[2017-11-09] MEDS ORDERED: HEPARIN SOD,PORK IN 0.45% NACL 25,000 UNIT in 0.45% NACL 1 500ML.BAG IV SCH (16:15)
[2017-11-09] MEDS ORDERED: NITROGLYCERIN SL TABS 0.4 MG TAB SUBLINGUAL PRN (16:18)
[2017-11-09 16:34] VITALS: RESP 18
[2017-11-09] MEDS ORDERED: HYDROCORTISONE SUCCINATE 100 MG/2 ML VIAL IV STA (17:03)
[2017-11-09] MEDS ORDERED: NITROGLYCERIN OINT 1 INCH/GM PACKET TOPICAL SCH (18:00)
[2017-11-09 18:08] VITALS: BP 130/72; PULSE 90; TEMP 97.7
[2017-11-10] MEDS ORDERED: ASPIRIN 325 MG TAB PO SCH (09:00)
== END 2017-11-09 18:45 | disposition other institution (70) ==
LOC: EC 14:24 → 3OBS 16:23 → UNDOADMOB 16:23 → 3OBS 18:05 → EC 18:45
DX: I20.0 Unstable angina (principal); F17.200 Nicotine dependence, unspecified, uncomplicated
CPT/HCPCS: 36415; 93005; 80053; 82550; 82553; 83735; 84484; 85025; 85610; 85730; 80320; 71046; 99285; 96365; 96366; 96376; J1644 ×2

== ENCOUNTER 2018-07-17 19:08 | Emergency (ER) | payer MEDICARE, OTHER ==
[2018-07-17 19:15] VITALS: TEMP 98.4
[2018-07-17] MEDS ORDERED: LIDOCAINE 5% PATCH TOPICAL STA (19:52)
--- NOTE | 2018-07-17 19:56 | ED ---
General Adult HPI - General Chief complaint: Chest Pain Stated complaint: chest pain Time Seen by Provider: 07/17/18 19:16 Source: EMS Mode of arrival: EMS Limitations: no limitations - History of Present Illness Initial comments: Dictation was produced using [employer] dictation software. please excuse any grammatical, word or spelling errors. Chief Complaint: 52-year-old male past medical history of COPD presents with 4 months of left-sided chest pain. History of Present Illness: Patient is a 52-year-old male with past nuchal history of COPD presents with 4 months of left-sided chest pain. He states his pain was worse headache putting him to come to the emergency department. Patient states the pain is sharp and located to his left anterior chest. It's worse with deep inspiration. Patient also has pain with palpation and with left upper extremity movements. Denies any fever, chills or night sweats. The ROS documented in this emergency department record has been reviewed and confirmed by me. Those systems with pertinent positive or negative responses have been documented in the HPI. All other systems are other negative and/or noncontributory. PHYSICAL EXAM: General Impression: Alert and oriented x3, not in acute distress, smells of EtOH HEENT: Normocephalic atraumatic, extra-ocular movements intact, pupils equal and reactive to light bilaterally, mucous membranes moist. Cardiovascular: Heart regular rate and rhythm, S1&S2 audible, no murmurs, rubs or gallops Chest: Lungs clear to auscultation bilaterally, no rhonchi, no wheeze, no rales, tenderness to palpation over the left anterior chest Abdomen: Bowel sounds present, abdomen soft, non-tender, non-distended, no organomegaly Musculoskeletal: Pulses present and equal in all extremities, no peripheral edema Motor: no focal deficits noted Neurological: CN II-XII grossly intact, no focal motor or sensory deficits noted Skin: Intact with no visualized rashes Psych: Normal affect and mood ED course: 52-year-old male presents with atypical chest pain. Upon arrival are within acceptable limits. EKG is unremarkable.Laboratory evaluation obtained. CBC, metabolic panel is unremarkable. Patient has mild hypokalemia of 3.3. Patient given by mouth potassium. Patient calls 192. Chest x-ray is unremarkable. Patient's clinical presentation is atypical. Patient is reevaluated and resting comfortably. Patient sleeping comfortably tolerating by mouth. Patient told to follow-up with his primary care physician. Patient given lidocaine patch improvement of symptoms. Patient states she will be able to arrange transportation back home. Patient told to follow-up with his PCP for outpatient evaluation of his chest pain. EKG interpretation: Ventricular rate 89, normal sinus rhythm,. 146, QS 106, QTC 479, right bundle branch block.. No MI prolongation, no QTC prolongation, no ST or T-wave changes noted. EKG compared to heart is 2017 showing no changes. Overall, this EKG is unremarkable - Related Data Home Medications Medication Instructions Recorded Confirmed Gabapentin [Neurontin] 300 mg PO BID PRN 11/21/16 07/17/18 Hydrocodone/Acetaminophen [[place] 1 tab PO Q6H PRN 11/21/16 07/17/18 10-325] Albuterol Sulfate [Proair Hfa] 1 - 2 puff INHALATION RT-QID PRN 07/17/18 07/17/18 Budesonide/Formoterol Fumarate 2 puff INHALATION RT-BID 07/17/18 07/17/18 [Symbicort 160-4.5 Mcg Inhaler] Allergies Allergy/AdvReac Type Severity Reaction Status Date / Time No Known Allergies Allergy Verified 07/17/18 19:46 Review of Systems ROS Statement: Those systems with pertinent positive or pertinent negative responses have been documented in the HPI. ROS Other: All systems not noted in ROS Statement are negative. Past Medical History Past Medical History: COPD Additional Past Medical History / Comment(s): back deteriorating spine History of Any Multi-Drug Resistant Organisms: None Reported Past Surgical History: No Surgical Hx Reported, Orthopedic Surgery Additional Past Surgical History / Comment(s): both hips replaced 2016 Past Psychological History: No Psychological Hx Reported Smoking Status: Current every day smoker Past Alcohol Use History: Occasional Past Drug Use History: None Reported General Exam Limitations: no limitations Course Vital Signs 07/17/18 19:12 Temperature 98.4 F Pulse Rate 76 Respiratory 18 Rate Blood Pressure 108/52 O2 Sat by Pulse 100 Oximetry Medical Decision Making - Lab Data Result diagrams: 07/17/18 21:52 07/17/18 21:52 Lab Results 07/17/18 07/17/18 Range/Units 21:52 21:52 WBC 8.1 (3.8-10.6) k/uL RBC 2.83 L (4.30-5.90) m/uL Hgb 10.2 L (13.0-17.5) gm/dL Hct 30.7 L (39.0-53.0) % MCV 108.3 H (80.0-100.0) fL MCH 36.1 H (25.0-35.0) pg MCHC 33.3 (31.0-37.0) g/dL RDW 13.9 (11.5-15.5) % Plt Count 307 (150-450) k/uL Neutrophils % 77 % Lymphocytes % 14 % Monocytes % 5 % Eosinophils % 2 % Basophils % 0 % Neutrophils # 6.3 (1.3-7.7) k/uL Lymphocytes # 1.2 (1.0-4.8) k/uL Monocytes # 0.4 (0-1.0) k/uL Eosinophils # 0.1 (0-0.7) k/uL Basophils # 0.0 (0-0.2) k/uL Macrocytosis Moderate Sodium 135 L (137-145) mmol/L Potassium 3.3 L (3.5-5.1) mmol/L Chloride 107 (98-107) mmol/L Carbon Dioxide 19 L (22-30) mmol/L Anion Gap 9 mmol/L BUN 3 L (9-20) mg/dL Creatinine 0.40 L (0.66-1.25) mg/dL Est GFR (CKD-EPI)AfAm >90 (>60 ml/min/1.73 sqM) Est GFR (CKD-EPI)NonAf >90 (>60 ml/min/1.73 sqM) Glucose 75 (74-99) mg/dL Calcium 8.6 (8.4-10.2) mg/dL Serum Alcohol 192 mg/dL Disposition Clinical Impression: Chest pain Disposition: HOME SELF-CARE Condition: Good Instructions (If sedation given, give patient instructions): Chest Pain (ED) Is patient prescribed a controlled substance at d/c from ED?: No Referrals: Jessica Samuels DO [Primary Care Provider] - 1-2 days Time of Disposition: 22:59
--- NOTE | 2018-07-17 20:26 | XR ---
EXAMINATION: XR chest 2V DATE AND TIME: 07/17/2018 8:13 PM CLINICAL INDICATION: PHH; Pain TECHNIQUE: Departmental protocol COMPARISON: 11/09/2018 FINDINGS: The lungs are clear. However, hyperinflation is redemonstrated consistent with COPD. The pleural spaces are negative. The cardiac silhouette is not enlarged. The remainder of the mediastinal silhouette is unremarkable. Left hilar calcifications are redemonstrated, consistent with healed granulomatous process. The skeletal structures and soft tissues are negative for acute findings. IMPRESSION: NO ACUTE PROCESS.
[2018-07-17 22:05] LABS: Basophils % (A) 0 %; Eosinophils # (A) 0.1 k/uL (0-0.7); Eosinophils % (A) 2 %; HCT 30.7 % (39.0-53.0); HGB 10.2 gm/dL (13.0-17.5); Lymphocytes # (A) 1.2 k/uL (1.0-4.8); Lymphocytes % (A) 14 %; MCH 36.1 pg (25.0-35.0); MCHC 33.3 g/dL (31.0-37.0); MCV 108.3 fL (80.0-100.0); Macrocytosis Moderate; Mean Platelet Volume 7.6; Monocytes # (A) 0.4 k/uL (0-1.0); Monocytes % (A) 5 %; Neutrophils # (A) 6.3 k/uL (1.3-7.7); Neutrophils % (A) 77 %; Platelet Count 307 k/uL (150-450); RBC 2.83 m/uL (4.30-5.90); RDW 13.9 % (11.5-15.5); WBC 8.1 k/uL (3.8-10.6)
[2018-07-17 22:15] LABS: Anion Gap 9 mmol/L; Blood Urea Nitrogen 3 mg/dL (9-20); Calcium 8.6 mg/dL (8.4-10.2); Carbon Dioxide 19 mmol/L (22-30); Chloride 107 mmol/L (98-107); Glucose 75 mg/dL (74-99); Potassium 3.3 mmol/L (3.5-5.1); Sodium 135 mmol/L (137-145)
[2018-07-17 22:25] LABS: Alcohol 192 mg/dL
[2018-07-17] MEDS ORDERED: POTASSIUM CHLORIDE ER 20 MEQ TAB.ER PO STA (22:34)
[2018-07-17 23:20] VITALS: RESP 16
[2018-07-18 06:32] VITALS: BP 133/82; PULSE 78
== END 2018-07-18 06:05 | disposition home or self-care (01) ==
LOC: EC 19:08
DX: R07.89 Other chest pain (principal); E87.6 Hypokalemia; R51 Headache; J44.9 Chronic obstructive pulmonary disease, unspecified; I45.10 Unspecified right bundle-branch block; F17.200 Nicotine dependence, unspecified, uncomplicated; Z96.643 Presence of artificial hip joint, bilateral; Z79.51 Long term (current) use of inhaled steroids; Z79.899 Other long term (current) drug therapy
CPT/HCPCS: 36415; 93005; 80048; 85025; 71046; 99285; G0480; 80320

== ENCOUNTER 2019-04-09 09:54 | Inpatient (IN) | payer MEDICARE ==
[2019-04-09] MEDS ORDERED: HYDROmorphone 0.5 MG/0.5 ML SYRINGE IVP STA (10:18)
[2019-04-09] MEDS ORDERED: SODIUM CHLORIDE 0.9% 500 ML 500 ML IV STA (10:18)
[2019-04-09] MEDS ORDERED: ONDANSETRON 4 MG/2 ML VIAL IVP STA (10:18)
[2019-04-09] MEDS ORDERED: SODIUM CHLORIDE 0.9% 1,000 ML IV STA (10:18)
--- NOTE | 2019-04-09 10:24 | ED ---
General Adult HPI - General Chief complaint: Abdominal Pain Stated complaint: Chest pain/weakness Time Seen by Provider: 04/09/19 10:00 Source: patient, RN notes reviewed, old records reviewed Mode of arrival: ambulatory Limitations: no limitations - History of Present Illness Initial comments: This is a 53-year-old male has a past medical history significant for smoking drinking and pancreatitis per patient has has COPD. Patient comes in stating that since she's been on and off having episodes of nausea and vomiting. Patient states she's lost a substantial amount of weight. Patient states she has pain in the epigastric and lower chest area. Patient states the pain radiates to his back. Patient denies any fever chills per patient denies any cough. Patient denies any palpitations. Patient denies being short of breath. Patient denies any headache or numbness weakness. Patient states he is a little lightheaded when he stands. Patient denies any leg swelling or calf tenderness. Patient denies any lower abdominal pain. Patient denies any injury or fall. Patient states he is not drinking however his mother is here and st ates that she thinks he occasionally still drinks - Related Data Home Medications Medication Instructions Recorded Confirmed Gabapentin [Neurontin] 300 mg PO BID PRN 11/21/16 07/17/18 Hydrocodone/Acetaminophen [[place] 1 tab PO Q6H PRN 11/21/16 07/17/18 10-325] Albuterol Sulfate [Proair Hfa] 1 - 2 puff INHALATION RT-QID PRN 07/17/18 07/17/18 Budesonide/Formoterol Fumarate 2 puff INHALATION RT-BID 07/17/18 07/17/18 [Symbicort 160-4.5 Mcg Inhaler] Allergies Allergy/AdvReac Type Severity Reaction Status Date / Time No Known Allergies Allergy Verified 07/17/18 19:46 Review of Systems ROS Statement: Those systems with pertinent positive or pertinent negative responses have been documented in the HPI. ROS Other: All systems not noted in ROS Statement are negative. Past Medical History Past Medical History: COPD Additional Past Medical History / Comment(s): back deteriorating spine History of Any Multi-Drug Resistant Organisms: None Reported Past Surgical History: No Surgical Hx Reported, Orthopedic Surgery Additional Past Surgical History / Comment(s): both hips replaced 2015 Past Psychological History: No Psychological Hx Reported Smoking Status: Current every day smoker Past Alcohol Use History: Occasional Past Drug Use History: None Reported General Exam - General Exam Comments Initial Comments: GENERAL: Patient appears very cachectic. ENT: Neck is soft and supple. No significant lymphadenopathy is noted. Oropharynx is clear. Moist mucous membranes. Neck has full range of motion without eliciting any pain. EYES: The sclera were anicteric and conjunctiva were pink and moist. Extraocular movements were intact and pupils were equal round and reactive to light. Eyelids were unremarkable. PULMONARY: Unlabored respirations. Good breath sounds throughout No audible rales rhonchi or wheezing was noted. CARDIOVASCULAR: There is a regular rate and rhythm without any murmurs gallops or rubs. ABDOMEN: Patient is tender in epigastric region SKIN: Skin is clear with no lesions or rashes and otherwise unremarkable. NEUROLOGIC: Patient is alert and oriented x3. Cranial nerves II through XII are grossly intact. Motor and sensory are also intact. Normal speech, volume and content. Symmetrical smile. MUSCULOSKELETAL: Normal extremities with adequate strength and full range of motion. LYMPHATICS: No significant lymphadenopathy is noted PSYCHIATRIC: Normal psychiatric evaluation. Limitations: no limitations Course Vital Signs 04/09/19 04/09/19 09:57 11:02 Temperature 97.8 F Pulse Rate 117 H Pulse Rate [ 90 Left Sitting] Pulse Rate [ 86 Left Supine] Respiratory 20 18 Rate Blood Pressure 102/70 Blood Pressure 132/91 [Left Arm Sitting] Blood Pressure 119/85 [Left Arm Supine] O2 Sat by Pulse 99 99 Oximetry Medical Decision Making - Medical Decision Making EKG shows sinus rhythm with occasional PVC at 93 bpm MT interval 138 QRS is 102 QT interval 374 QTC is 465. Patient's EKG shows no ST segment elevation. Patient's amylase and lipase are elevated. I spoke with Dr. Gallegos he agreed to admit the patient admitted the patient I wrote admitting orders. - Lab Data Result diagrams: 04/09/19 10:15 04/09/19 10:15 Lab Results 04/09/19 04/09/19 04/09/19 Range/Units 10:15 10:15 10:15 WBC 13.6 H (3.8-10.6) k/uL RBC 3.80 L (4.30-5.90) m/uL Hgb 14.0 (13.0-17.5) gm/dL Hct 40.7 (39.0-53.0) % MCV 107.2 H (80.0-100.0) fL MCH 36.8 H (25.0-35.0) pg MCHC 34.3 (31.0-37.0) g/dL RDW 15.2 (11.5-15.5) % Plt Count 649 H (150-450) k/uL Neutrophils % 78 % Lymphocytes % 9 % Monocytes % 7 % Eosinophils % 2 % Basophils % 3 % Neutrophils # 10.6 H (1.3-7.7) k/uL Lymphocytes # 1.3 (1.0-4.8) k/uL Monocytes # 1.0 (0-1.0) k/uL Eosinophils # 0.2 (0-0.7) k/uL Basophils # 0.4 H (0-0.2) k/uL Manual Slide Review Performed Macrocytosis Marked A Target Cells Present PT 11.1 (9.0-12.0) sec INR 1.1 (<1.2) APTT 23.3 (22.0-30.0) sec Sodium 139 (137-145) mmol/L Potassium 3.0 L (3.5-5.1) mmol/L Chloride 94 L (98-107) mmol/L Carbon Dioxide 30 (22-30) mmol/L Anion Gap 15 mmol/L BUN 17 (9-20) mg/dL Creatinine 0.65 L (0.66-1.25) mg/dL Est GFR (CKD-EPI)AfAm >90 (>60 ml/min/1.73 sqM) Est GFR (CKD-EPI)NonAf >90 (>60 ml/min/1.73 sqM) Glucose 116 H (74-99) mg/dL Calcium 9.1 (8.4-10.2) mg/dL Magnesium 1.8 (1.6-2.3) mg/dL Total Bilirubin 1.2 (0.2-1.3) mg/dL AST 37 (17-59) U/L ALT 26 (4-49) U/L Alkaline Phosphatase 218 H (38-126) U/L Troponin I (0.000-0.034) ng/mL Total Protein 7.5 (6.3-8.2) g/dL Albumin 3.6 (3.5-5.0) g/dL Amylase 1423 H* (30-110) U/L Lipase 3838 H (23-300) U/L Serum Alcohol <10 mg/dL 04/09/19 Range/Units 10:15 WBC (3.8-10.6) k/uL RBC (4.30-5.90) m/uL Hgb (13.0-17.5) gm/dL Hct (39.0-53.0) % MCV (80.0-100.0) fL MCH (25.0-35.0) pg MCHC (31.0-37.0) g/dL RDW (11.5-15.5) % Plt Count (150-450) k/uL Neutrophils % % Lymphocytes % % Monocytes % % Eosinophils % % Basophils % % Neutrophils # (1.3-7.7) k/uL Lymphocytes # (1.0-4.8) k/uL Monocytes # (0-1.0) k/uL Eosinophils # (0-0.7) k/uL Basophils # (0-0.2) k/uL Manual Slide Review Macrocytosis Target Cells PT (9.0-12.0) sec INR (<1.2) APTT (22.0-30.0) sec Sodium (137-145) mmol/L Potassium (3.5-5.1) mmol/L Chloride (98-107) mmol/L Carbon Dioxide (22-30) mmol/L Anion Gap mmol/L BUN (9-20) mg/dL Creatinine (0.66-1.25) mg/dL Est GFR (CKD-EPI)AfAm (>60 ml/min/1.73 sqM) Est GFR (CKD-EPI)NonAf (>60 ml/min/1.73 sqM) Glucose (74-99) mg/dL Calcium (8.4-10.2) mg/dL Magnesium (1.6-2.3) mg/dL Total Bilirubin (0.2-1.3) mg/dL AST (17-59) U/L ALT (4-49) U/L Alkaline Phosphatase (38-126) U/L Troponin I <0.012 (0.000-0.034) ng/mL Total Protein (6.3-8.2) g/dL Albumin (3.5-5.0) g/dL Amylase (30-110) U/L Lipase (23-300) U/L Serum Alcohol mg/dL Disposition Clinical Impression: Pancreatitis Disposition: ADMITTED IP TO THIS HOSP Referrals: Jessica Samuels DO [Primary Care Provider] - 1-2 days Time of Disposition: 12:05
[2019-04-09 10:35] LABS: Basophils # (A) 0.4 k/uL (0-0.2); Basophils % (A) 3 %; Eosinophils # (A) 0.2 k/uL (0-0.7); Eosinophils % (A) 2 %; HCT 40.7 % (39.0-53.0); Lymphocytes # (A) 1.3 k/uL (1.0-4.8); Lymphocytes % (A) 9 %; MCH 36.8 pg (25.0-35.0); MCHC 34.3 g/dL (31.0-37.0); MCV 107.2 fL (80.0-100.0); Macrocytosis Marked; Mean Platelet Volume 7.9; Monocytes % (A) 7 %; Neutrophils # (A) 10.6 k/uL (1.3-7.7); Neutrophils % (A) 78 %; Platelet Count 649 k/uL (150-450); RDW 15.2 % (11.5-15.5); WBC 13.6 k/uL (3.8-10.6)
[2019-04-09 10:48] LABS: ALT 26 U/L (4-49); AST 37 U/L (17-59); African American GFR (CKD) >90 (>60 ml/min/1.73 sqM); Albumin 3.6 g/dL (3.5-5.0); Alcohol <10 mg/dL; Alkaline Phosphatase 218 U/L (38-126); Anion Gap 15 mmol/L; Blood Urea Nitrogen 17 mg/dL (9-20); Calcium 9.1 mg/dL (8.4-10.2); Carbon Dioxide 30 mmol/L (22-30); Chloride 94 mmol/L (98-107); Glucose 116 mg/dL (74-99); INR 1.1 (<1.2); Magnesium 1.8 mg/dL (1.6-2.3); Non-African American GFR(CKD) >90 (>60 ml/min/1.73 sqM); Partial Thromboplastin Time 23.3 sec (22.0-30.0); Prothrombin Time 11.1 sec (9.0-12.0); Sodium 139 mmol/L (137-145); Total Bilirubin 1.2 mg/dL (0.2-1.3); Total Protein 7.5 g/dL (6.3-8.2)
[2019-04-09 10:51] LABS: Target Cells Present
[2019-04-09 10:58] LABS: Amylase 1423 U/L (30-110)
[2019-04-09] MEDS ORDERED: SODIUM CHLORIDE 0.9% 1,000 ML IV ONE (12:05)
[2019-04-09] MEDS ORDERED: INFLUENZA VACCINE (6 MOS+) 60 MCG/0.5 ML SYRINGE IM ONE (14:11)
[2019-04-09] MEDS: HYDROmorphone 0.5 MG/0.5 ML SYRINGE IVP PRN ×3 (15:25→23:56)
[2019-04-09] MEDS: ONDANSETRON 4 MG/2 ML VIAL IVP PRN ×2 (15:25→21:05)
--- NOTE | 2019-04-09 17:05 | CONS ---
CONSULTATION DATE OF DICTATION: 04/09/2019 REASON FOR CONSULTATION: Chronic relapsing pancreatitis. HISTORY OF PRESENT ILLNESS: The patient is a 53-year-old pleasant white male with history of heavy alcohol abuse of several years' duration and two episodes of pancreatitis in the past in 2017 and 2018, respectively. He stated that he quit drinking about 3 months ago. He came into the hospital complaining of severe epigastric pain, mostly in the epigastric area into the lower chest area that started 3 days ago. It radiated to the back, associated with some nausea but no emesis. He was noted to have elevated amylase and lipase consistent with acute pancreatitis. Today he still continues to feel the same. He remains n.p.o. He states that he quit drinking about 3 months ago. One of his admissions in 2018 when he had acute pancreatitis was complicated with a pseudocyst formation. PAST MEDICAL HISTORY: Significant for chronic relapsing pancreatitis and history of heavy alcohol abuse. PAST SURGICAL HISTORY: Both hips replaced. MEDICATIONS: Medications at home include Neurontin, [place], albuterol and Symbicort. ALLERGIES: NONE. SOCIAL HISTORY: Chronic smoker. Heavy alcohol use, as mentioned above. Quit drinking about 3 months ago. REVIEW OF SYSTEMS: CARDIOPULMONARY: No chest pain or shortness of breath. GENITOURINARY: No dysuria or hematuria. MUSCULOSKELETAL: Unremarkable. SKIN: Unremarkable. ENDOCRINE: Unremarkable. PSYCHIATRIC: Unremarkable. NEUROLOGY: Unremarkable. ENT/VISION: Unremarkable. CONSTITUTIONAL: No recent weight loss. No fever, chills, night sweats. PHYSICAL EXAMINATION: Blood pressure is 138/74, pulse rate 76, temperature 99. HEENT examination unremarkable. Conjunctivae pink. Sclerae anicteric. Oral cavity no lesions. NECK: No JVD or lymph node enlargement. CHEST: Clear to auscultation. HEART: Regular rate and rhythm. ABDOMEN: Soft. There was mild diffuse tenderness noted throughout the entire abdomen, more predominant in the epigastric area. EXTREMITIES: No pedal edema. SKIN: No rashes. NEUROLOGIC: Alert and oriented x3. No focal deficits. LABS: Labs from today show WBC 13.6, hemoglobin 14, platelets 649. BUN and creatinine are within normal limits. Potassium 3, chloride 94, sodium 139, amylase 1423, lipase 3838. ALT and AST are normal. T-bilirubin 1.2. Alkaline phosphatase 218. Serum alcohol level less than 10. IMPRESSION: 1. Elevated amylase and lipase consistent with acute pancreatitis, most likely suggestive of chronic relapsing pancreatitis from history of heavy alcohol abuse. Patient had prior history of pancreatitis in 2017 and 2018, one of which was complicated by a pseudocyst formation. The patient has been abstinent from alcohol for the last 3 months. His normal serum transaminases makes it unlikely that we are dealing with any biliary pancreatitis. 2. History of heavy alcohol abuse for several years; quit drinking about 3 months ago. Serum alcohol level during this hospitalization was less than 10. RECOMMENDATIONS: 1. Keep him n.p.o. 2. Aggressive IV hydration and pain medications. 3. Repeat labs in the morning. 4. Ultrasound of the abdomen/gallbladder. 5. Will follow with you closely. Thank you for this consultation. MMODL / IJN: [id number] /
[2019-04-09] MEDS: NICOTINE 21MG/24HR PATCH TRANSDERM SCH (17:41)
[2019-04-09] MEDS: SODIUM CHLORIDE 0.9% 1,000 ML IV SCH ×2 (17:41→23:56)
--- NOTE | 2019-04-09 20:56 | US ---
EXAMINATION TYPE: US abdomen complete DATE OF EXAM: 04/09/2019 COMPARISON: NONE CLINICAL HISTORY: pancreatitis. abd pain, known pancreatitis, h/o pancreatic pseudocyst EXAM MEASUREMENTS: Liver Length: 18.4 cm Gallbladder Wall: 0.2 cm CBD: 0.6 cm Spleen: not seen Right Kidney: 11.0 x 5.2 x 4.1 cm Left Kidney: 9.1 x 4.1 x 5.3 cm *patient drank water prior to exam so fluid filled stomach is seen midline and LUQ Pancreas: 7.3cm complex lesion noted on anterior portion near head of pancreas, patient states h/o p seudocyst in 2017 Liver: difficult to penetrate, heterogeneous Gallbladder: wnl Evidence for sonographic Clements's sign: no CBD: wnl Spleen: fluid filled stomach fills LUQ and obscures view of spleen Right Kidney: wnl Left Kidney: wnl Upper IVC: wnl Abd Aorta: wnl Impression Liver is echogenic consistent with fatty infiltration. Large complex mass in the pancreas consistent with a large pseudocyst that measures approximate 7 x 4 cm. No dilated ducts. No free fluid. Abdomina l aorta measures up to 2 cm. No aneurysm.
[2019-04-09] MEDS: PANTOPRAZOLE 40 MG/10 ML VIAL IVP SCH (21:04)
[2019-04-10] MEDS: SODIUM CHLORIDE 0.9% 1,000 ML IV SCH ×4 (03:32→19:37)
[2019-04-10] MEDS: HYDROmorphone 0.5 MG/0.5 ML SYRINGE IVP PRN ×5 (03:33→21:03)
[2019-04-10] MEDS: ONDANSETRON 4 MG/2 ML VIAL IVP PRN ×4 (03:34→19:11)
[2019-04-10 07:56] LABS: ALT 18 U/L (4-49); AST 32 U/L (17-59); African American GFR (CKD) >90 (>60 ml/min/1.73 sqM); Albumin 2.4 g/dL (3.5-5.0); Alkaline Phosphatase 134 U/L (38-126); Anion Gap 8 mmol/L; Blood Urea Nitrogen 13 mg/dL (9-20); Calcium 7.4 mg/dL (8.4-10.2); Carbon Dioxide 24 mmol/L (22-30); Chloride 108 mmol/L (98-107); Glucose 69 mg/dL (74-99); Non-African American GFR(CKD) >90 (>60 ml/min/1.73 sqM); Potassium 2.9 mmol/L (3.5-5.1); Sodium 140 mmol/L (137-145); Total Bilirubin 1.1 mg/dL (0.2-1.3); Total Protein 5.4 g/dL (6.3-8.2)
[2019-04-10 08:08] LABS: Amylase 1004 U/L (30-110)
[2019-04-10] MEDS: NICOTINE 21MG/24HR PATCH TRANSDERM SCH (08:17)
[2019-04-10] MEDS: PANTOPRAZOLE 40 MG/10 ML VIAL IVP SCH ×2 (08:17→20:58)
[2019-04-10 13:38] VITALS: BMI 19.8
--- NOTE | 2019-04-10 14:18 | PN ---
PROGRESS NOTE DATE OF DICTATION: 04/10/2019 Patient is a 53-year-old pleasant white male with a history of alcohol abuse, admitted to the hospital with acute pancreatitis. He has been complaining of severe epigastric pain, but he is better today. He states he is hungry and wants to have some liquids. He reports no nausea, vomiting. Still requiring pain medications every 4 hours. PHYSICAL EXAMINATION: Blood pressure 139/80, pulse 83, temperature 98. HEENT: Examination unremarkable, conjunctivae are pink. Sclerae nonicteric, oral cavity no lesions. NECK: No JVD or lymph node enlargement. CHEST: Clear to auscultation. HEART: Regular rate and rhythm. ABDOMEN: Soft, bowel sounds are positive. No organomegaly. There was mild tenderness in the epigastric area. EXTREMITIES: No pedal edema. SKIN: No rashes. NEUROLOGIC: Alert and oriented x3. No focal deficits. LABS: From today, lipase is down to 2823. Amylase is down to 1007. ALT and AST are normal. Alkaline phosphatase is 134. CBC not done. IMPRESSION: 1. Chronic relapsing pancreatitis secondary to alcohol abuse. Lipase is gradually improving. Abdominal ultrasound done yesterday. Gallbladder appears to be in normal limits. Liver was heterogeneous. In the pancreas there was a 7.3 cm complex lesion along the anterior portion, near the head of the pancreas suggestive of a pseudocyst. 2. Large pancreatic pseudocyst. RECOMMENDATION: 1. Start him on a clear liquid diet. 2. Will proceed with CT of the abdomen to evaluate the pseudocyst. 3. Pain medications as needed. 4. Repeat labs in the morning. 5. Will follow with you closely during his hospital stay. Thank you for this consultation. MMODL / IJN: [id number] /
[2019-04-10] MEDS ORDERED: Potassium Replacement Protocol 1 EACH MISC MISCELLANE PRN (14:56)
[2019-04-10] MEDS: POTASSIUM CHLORIDE ER 20 MEQ TAB.ER PO SCH ×3 (18:00→19:37)
[2019-04-11] MEDS: POTASSIUM CHLORIDE ER 20 MEQ TAB.ER PO SCH ×4 (00:06→04:40)
[2019-04-11] MEDS: SODIUM CHLORIDE 0.9% 1,000 ML IV SCH ×2 (00:06→04:38)
[2019-04-11] MEDS: HYDROmorphone 0.5 MG/0.5 ML SYRINGE IVP PRN ×4 (00:09→19:33)
[2019-04-11] MEDS: ONDANSETRON 4 MG/2 ML VIAL IVP PRN ×2 (02:10→08:58)
[2019-04-11] MEDS ORDERED: Potassium Replacement Protocol 1 EACH MISC MISCELLANE PRN (03:39)
--- NOTE | 2019-04-11 08:48 | P.HPIM ---
History of Present Illness H&P Date: 04/10/19 Chief Complaint: abdominal pain Roman Briseno is a 53 yo M with PMH of alcohol abuse, pancreatitis, pancreatic pseudocyst who presented to the ED complaining of severe epigastric pain over the past 3 days. He reports a history of previous heavy drinking and episodes of pancreatitis in 2017 and 2018. Pt states that he has quit drinking for the past 3 months but may have had a few days where he relapsed. He complains of 20 lb weight loss since February and has had nausea and abdominal pain with eating. He denies fever, chills, vomiting or diarrhea. He denies bloody stools. In the ED vitals stable, WBC 13k, amylase and lipase elevated over 3000. Abd US with 7 cm pancreatic head complex mass in location of previous pseudocyst. Review of Systems All systems: negative Constitutional: Reports as per HPI, Reports malaise, Reports weight loss, Denies chills, Denies fever Eyes: denies blurred vision, denies pain Ears, nose, mouth and throat: Denies headache, Denies sore throat Cardiovascular: Denies chest pain, Denies shortness of breath Respiratory: Denies cough Gastrointestinal: Reports abdominal pain, Reports bloating, Reports loss of appetite, Reports nausea, Denies diarrhea, Denies vomiting Musculoskeletal: Denies myalgias Integumentary: Denies pruritus, Denies rash Neurological: Denies numbness, Denies weakness Psychiatric: Denies anxiety, Denies depression Endocrine: Denies fatigue, Denies weight change Past Medical History Past Medical History: Asthma, Chest Pain / Angina, COPD, GERD/Reflux, Pneumonia Additional Past Medical History / Comment(s): Bronchitis, past ETOH abuse/quit drinking 3 months ago, pancreatitis, pancreatic pseudocyst, deteriorating spine, chronic back pain, taken off HTN med and cholesterol meds but was on them in the past, 2008 TIA, mono as a teen. History of Any Multi-Drug Resistant Organisms: None Reported Past Surgical History: No Surgical Hx Reported, Orthopedic Surgery Additional Past Surgical History / Comment(s): 2016 bilateral hip arthroplasties, R elbow fracture with pins/since removed, colonoscopy with benign polyps Past Anesthesia/Blood Transfusion Reactions: No Reported Reaction Smoking Status: Current every day smoker - Past Family History Father Family Medical History: Dementia, Musculoskeletal Disorder, Neurologic Disorder Additional Family Medical History / Comment(s): Father of dementia/parkinson's disease recently, at the age of 75yr. Mother Family Medical History: Diabetes Mellitus, Hyperlipidemia, Hypertension Medications and Allergies Home Medications Medication Instructions Recorded Confirmed Type Gabapentin [Neurontin] 300 mg PO DAILY PRN 11/21/16 04/09/19 History Hydrocodone/Acetaminophen [[place] 1 tab PO Q6H PRN 11/21/16 04/09/19 History 10-325] Albuterol Sulfate [Proair Hfa] 1 - 2 puff INHALATION RT-QID PRN 07/17/18 04/09/19 History Ibuprofen [Motrin Ib] 400 mg PO Q6H PRN 04/09/19 04/09/19 History Omeprazole 20 mg PO DAILY 04/09/19 04/09/19 History Allergies Allergy/AdvReac Type Severity Reaction Status Date / Time No Known Allergies Allergy Verified 04/09/19 12:29 Physical Exam Vitals: Vital Signs Temp Pulse Resp BP Pulse Ox 04/10/19 16:00 16 04/10/19 14:27 98.3 F 81 18 142/84 100 04/10/19 08:00 16 04/10/19 04:45 98.0 F 83 12 139/80 100 04/09/19 22:55 98.3 F 82 12 134/75 100 Intake and Output 04/10/19 04/10/19 04/10/19 06:59 14:59 22:59 Intake Total 540 540 Output Total 150 Balance -150 540 540 Intake: Oral 540 540 Output: Urine 150 Other: Voiding Method Toilet # Voids 2 2 # Bowel Movements 1 Weight 53.977 kg General: Well-developed, thin white male in no acute distress. Vitals reviewed HEENT: Normocephalic, atraumatic, mucous membranes moist Neck: Supple, no JVD Lymph: No cervical or axillary lymphadenopathy CV: Regular rate and rhythm, no murmur. Pulses 2+ Lungs: Normal respiratory effort, no wheezes, no rales Abdomen: Soft, epigastric tenderness, no organomegaly Neuro: Alert and oriented 3, no focal deficits Skin: Warm and dry Results CBC & Chem 7: 04/09/19 10:15 04/11/19 07:13 Labs: Abnormal Lab Results - Last 24 Hours (Table) 04/10/19 Range/Units 07:03 Potassium 2.9 L (3.5-5.1) mmol/L Chloride 108 H (98-107) mmol/L Creatinine 0.41 L (0.66-1.25) mg/dL Glucose 69 L (74-99) mg/dL Calcium 7.4 L (8.4-10.2) mg/dL Alkaline Phosphatase 134 H (38-126) U/L Total Protein 5.4 L (6.3-8.2) g/dL Albumin 2.4 L (3.5-5.0) g/dL Amylase 1004 H* (30-110) U/L Lipase 2823 H (23-300) U/L Thrombosis Risk Factor Assmnt - Choose All That Apply Any of the Below Risk Factors Present?: Yes Each Factor Represents 1 point: Abnormal pulmonary function (COPD), Age 41-60 years Other Risk Factors: No Other congenital or acquired thrombophilia - If yes, enter type in comment: No Thrombosis Risk Factor Assessment Total Risk Factor Score: 2 Thrombosis Risk Factor Assessment Level: Low Risk Assessment and Plan (1) Pancreatitis Current Visit: Yes Status: Acute Code(s): K85.90 - ACUTE PANCREATITIS WITHOUT NECROSIS OR INFECTION, UNSP SNOMED Code(s): 43539128 (2) Pancreatic pseudocyst Current Visit: No Status: Acute Code(s): K86.3 - PSEUDOCYST OF PANCREAS SNOMED Code(s): 053928561 Plan: 1. Acute pancreatitis. Pancreatic pseudocyst. GI consulted. Aggressive fluid hydration. Pain control. Clear liquid diet. IV protonix. Trend lipase and LFTs.
[2019-04-11] MEDS ORDERED: SODIUM CHLORIDE 0.9% 1,000 ML with POTASSIUM CHLORIDE 40 MEQ IV SCH ×2 (08:52)
[2019-04-11] MEDS: NICOTINE 21MG/24HR PATCH TRANSDERM SCH (08:58)
[2019-04-11] MEDS: PANTOPRAZOLE 40 MG/10 ML VIAL IVP SCH ×2 (08:58→21:51)
[2019-04-11 09:07] LABS: Amylase 703 U/L (30-110)
[2019-04-11 09:16] LABS: ALT 20 U/L (4-49); AST 37 U/L (17-59); African American GFR (CKD) >90 (>60 ml/min/1.73 sqM); Albumin 2.2 g/dL (3.5-5.0); Alkaline Phosphatase 130 U/L (38-126); Anion Gap 6 mmol/L; Blood Urea Nitrogen 4 mg/dL (9-20); Calcium 7.3 mg/dL (8.4-10.2); Carbon Dioxide 23 mmol/L (22-30); Chloride 110 mmol/L (98-107); Glucose 75 mg/dL (74-99); Magnesium 1.3 mg/dL (1.6-2.3); Non-African American GFR(CKD) >90 (>60 ml/min/1.73 sqM); Potassium 3.6 mmol/L (3.5-5.1); Sodium 139 mmol/L (137-145); Total Protein 5.1 g/dL (6.3-8.2)
[2019-04-11 10:16] LABS: Basophils # (A) 0.1 k/uL (0-0.2); Basophils % (A) 1 %; Eosinophils # (A) 0.2 k/uL (0-0.7); Eosinophils % (A) 3 %; HCT 28.3 % (39.0-53.0); Lymphocytes # (A) 1.3 k/uL (1.0-4.8); Lymphocytes % (A) 15 %; MCH 36.6 pg (25.0-35.0); MCHC 32.6 g/dL (31.0-37.0); Macrocytosis Marked; Mean Platelet Volume 8.2; Monocytes # (A) 0.7 k/uL (0-1.0); Monocytes % (A) 8 %; Neutrophils # (A) 6.4 k/uL (1.3-7.7); Neutrophils % (A) 72 %; Platelet Count 519 k/uL (150-450); RBC 2.52 m/uL (4.30-5.90); RDW 15.1 % (11.5-15.5); WBC 8.9 k/uL (3.8-10.6)
[2019-04-11 10:21] LABS: HGB 9.2 gm/dL (13.0-17.5)
[2019-04-11 10:22] LABS: MCV 112.3 fL (80.0-100.0)
[2019-04-11 10:51] LABS: Anisocytosis (M) Present; Poikilocytosis (M) Present
[2019-04-11] MEDS: IOPAMIDOL CONTRAST (ORAL USE) VIAL PO PRN ×2 (11:29→12:39)
[2019-04-11] MEDS: 0.9% NACL WITH KCL 40 MEQ/L 1,000 ML IV SCH ×4 (11:59→23:28)
--- NOTE | 2019-04-11 13:24 | CT ---
EXAMINATION TYPE: CT abdomen pelvis w con DATE OF EXAM: 04/11/2019 COMPARISON: 12/20/2016 HISTORY: Abnormal US, pancreatic psuedocyst CT DLP: 376.8 mGycm CONTRAST: CT scan of the abdomen and pelvis is performed with Oral Contrast and with IV Contrast, patient injec katia with 100 mL of Isovue 300. FINDINGS: LUNG BASES-: Small basilar pleural effusions and basilar atelectasis or infiltrates. LIVER/GB: No calcified gallstones. There is evidence of hepatic steatosis. No space occupying hepat ic lesion. Biliary tree is of normal caliber. PANCREAS: Enlarging cystic collections about the pancreas measuring up to 3.6 cm felt to reflect pseu docyst formation. Mass effect noted upon the adjacent stomach. Surrounding inflammatory changes noted . Additional cystic lesion within the head of the pancreas measuring 1.6 cm. SPLEEN: No splenic enlargement. No lesion seen. ADRENALS: No nodule. No thickening. KIDNEYS/BLADDER: No hydronephrosis. No nephrolithiasis. No distinct renal mass. Urinary bladder g rossly unremarkable. BOWEL: Normal appendix. Normal bowel caliber. No inflammation. GENITAL ORGANS: No gross abnormality. LYMPH NODES: No greater than 1cm abdominal or pelvic lymph nodes are appreciated. AORTA: No significant abnormality. OSSEOUS STRUCTURES: Bilateral hip prostheses noted. OTHER: No significant additional abnormality is seen. IMPRESSION: 1. Enlarging cystic collections about the pancreas measuring up to 3.6 cm felt to reflect pseudocyst formation. Mass effect noted upon the adjacent stomach. Surrounding inflammatory changes noted.
--- NOTE | 2019-04-11 13:40 | CDI ---
Documentation Clarification Form Date: 04/11/2019 01:30:34 PM From: Coni FortuneFuKAYLEE nicole, CCDS Admit Date: 04/09/2019 12:05:00 PM Patient Name: Roman Briseno Visit Number: [id number] Discharge Date: ATTENTION: The Clinical Documentation Specialists (CDI) and [facility] Coding Staff appreciate your assistance in clarifying documentation. Please respond to the clarification below the line at the bottom and electronically sign. The CDI & [facility] Coding staff will review the response and follow-up if needed. Please note: Queries are made part of the Legal Health Record. If you have any questions, please contact the author of this message via ITS. Dr. Robert Guadalupe: Per the ED note: "Patient appears very cachectic." History/Risk Factors: EtOH, Smoker, recurrent pancreatitis, GERD & COPD. Clinical Indicators: Presented to ED with abdominal pain, multiple episodes of nausea & vomiting & weight loss. Diagnosed with alcohol induced acute on chronic pancreatitis. Labs: WBC 13.6^, Pl Ct 649^, Neut 10.6^, K 3.0*, Cl 94*, Glucose 116^, Alk Phos 218^, Amylase 423^^, Lipase 3838^. Serum Alcohol <10. Weight 53.977 kg. Ht 5 ft 5 in; 88% ideal body wt. 31 lb weight loss since . Malnutrition, severe protein-calorie in chronic illness. Current BMI: 19.8 Nutritional assessment: Appetite fair past 1-3 months, Poor nutrition intake, NPO x1 day, reports being hungry, Treatment, PPI, Nicotine patch, IV fluid rate 200. GI consult. IV Dilaudid, IV Zofran, IV fluid bolus x2, IV NaCl w/Kcl. In your professional opinion, can you please clarify if these findings signify one of the following conditions? Mild Protein-Calorie Malnutrition Moderate Protein-Calorie Malnutrition Severe Protein-Calorie Malnutrition Other condition, please specify Unable to determine (Last Revision: September 2018) moderate protein-calorie malnutrition MTDD
[2019-04-11] MEDS ORDERED: Magnesium Replacement Protocol 1 EACH MISC MISCELLANE PRN (16:39)
--- NOTE | 2019-04-11 16:48 | P.PN ---
Subjective Progress Note Date: 04/11/19 Roman Briseno is a 53 yo M with PMH of alcohol abuse, pancreatitis, pancreatic pseudocyst who presented to the ED complaining of severe epigastric pain over the past 3 days. He reports a history of previous heavy drinking and episodes of pancreatitis in 2016 and 2018. Pt states that he has quit drinking for the past 3 months but may have had a few days where he relapsed. He complains of 20 lb weight loss since February and has had nausea and abdominal pain with eating. He denies fever, chills, vomiting or diarrhea. He denies bloody stools. In the ED vitals stable, WBC 13k, amylase and lipase elevated over 3000. Abd US with 7 cm pancreatic head complex mass in location of previous pseudocyst. 04/11/2019 tolerating clear liquid diet with no nausea vomiting. Currently denying abdominal pain. Requesting diet advancement. Lipase down to 2143. Magnesium 1.3 , potassium 3.6. Hemoglobin 9.2-dilutional, receiving fluids at 200 MLS per hour. Abdomen/pelvis CT pending. Evaluated by GI with recomm endations noted and appreciated. Afebrile. Objective - Vital Signs Vital signs: Vital Signs Temp 98.8 F 04/11/19 16:34 Pulse 82 04/11/19 16:34 Resp 12 04/11/19 16:34 BP 142/87 04/11/19 16:34 Pulse Ox 99 04/11/19 13:06 Intake & Output 04/10/19 04/11/19 04/11/19 18:59 06:59 18:59 Intake Total 1080 240 Balance 1080 240 Weight 53.977 kg Intake: Oral 1080 240 Other: Voiding Method Toilet Toilet # Voids 2 2 2 # Bowel Movements 1 1 1 - Exam General: Well-developed, thin white male in no acute distress. HEENT: Normocephalic, atraumatic, mucous membranes moist Neck: Supple, no JVD Lymph: No cervical or axillary lymphadenopathy CV: Regular rate and rhythm, no murmur. Pulses 2+ Lungs: Normal respiratory effort, no wheezes, no rales Abdomen: Soft, nontender no organomegaly, positive bowel sounds Neuro: Alert and oriented 3, no focal deficits Skin: Warm and dry - Labs CBC & Chem 7: 04/11/19 08:45 04/11/19 07:13 Labs: Abnormal Lab Results - Last 24 Hours (Table) 04/10/19 04/11/19 04/11/19 Range/Units 21:50 02:08 07:13 RBC (4.30-5.90) m/uL Hgb (13.0-17.5) gm/dL Hct (39.0-53.0) % MCV (80.0-100.0) fL MCH (25.0-35.0) pg Plt Count (150-450) k/uL Macrocytosis Potassium 3.1 L 3.3 L (3.5-5.1) mmol/L Chloride 110 H (98-107) mmol/L BUN 4 L (9-20) mg/dL Creatinine 0.39 L (0.66-1.25) mg/dL Calcium 7.3 L (8.4-10.2) mg/dL Magnesium 1.3 L (1.6-2.3) mg/dL Alkaline Phosphatase 130 H (38-126) U/L Total Protein 5.1 L (6.3-8.2) g/dL Albumin 2.2 L (3.5-5.0) g/dL Amylase 703 H* (30-110) U/L Lipase 2143 H (23-300) U/L 04/11/19 Range/Units 08:45 RBC 2.52 L (4.30-5.90) m/uL Hgb 9.2 L D (13.0-17.5) gm/dL Hct 28.3 L (39.0-53.0) % MCV 112.3 H D (80.0-100.0) fL MCH 36.6 H (25.0-35.0) pg Plt Count 519 H (150-450) k/uL Macrocytosis Marked A Potassium (3.5-5.1) mmol/L Chloride (98-107) mmol/L BUN (9-20) mg/dL Creatinine (0.66-1.25) mg/dL Calcium (8.4-10.2) mg/dL Magnesium (1.6-2.3) mg/dL Alkaline Phosphatase (38-126) U/L Total Protein (6.3-8.2) g/dL Albumin (3.5-5.0) g/dL Amylase (30-110) U/L Lipase (23-300) U/L Assessment and Plan Assessment: (1) Pancreatitis, secondary to alcohol abuse Current Visit: Yes Status: Acute Code(s): K85.90 - ACUTE PANCREATITIS WITHOUT NECROSIS OR INFECTION, UNSP SNOMED Code(s): 69585551 (2) Pancreatic pseudocyst Current Visit: No Status: Acute Code(s): K86.3 - PSEUDOCYST OF PANCREAS SNOMED Code(s): 201298624 (3) moderate protein calorie malnutrition, BMI 19.8 (4) hypomagnesemia (5) hypokalemia Plan: Continue on current medication regime ,monitoring and symptomatic treatment. Potassium and electrolyte supplementation ordered . Potassium added to IV fluids .CT abdomen and pelvis pending. Advance diet to soft low fat as tolerated. Increase ambulation as tolerated. Close monitoring of lipase, electrolytes with repeat labs ordered for a.m. Discharge planning in progress for tomorrow pending GI clearance.. The impression and plan of care has been dictated as directed. : I performed a history and examination of this patient, discussed the same with the dictator. I agree with the dictator's note ,documented as a scribe. Any additional findings or plans will be noted.
[2019-04-11] MEDS: MAGNESIUM SULFATE-D5W PMX 1 GM in DEXTROSE/WATER 1 100ML.BAG IVPB SCH ×3 (17:02→19:29)
--- NOTE | 2019-04-11 18:02 | PN ---
PROGRESS NOTE DATE OF DICTATION: 04/11/2019 This patient is a 53-year-old pleasant white male with history of chronic relapsing pancreatitis, admitted to the hospital with severe epigastric pain, nausea, vomiting, noted to have elevated amylase and lipase. He did have CT of the abdomen and pelvis done today that showed a 3.6 cm pseudocyst in the pancreas. The patient is feeling better. Abdominal pain has improved. He is on a full liquid diet, tolerating well, requesting a regular diet. PHYSICAL EXAMINATION: He appears comfortable. No apparent distress. Vital signs are stable. Blood pressure 141/89, pulse rate 72, temperature 98. HEENT examination unremarkable. Conjunctivae pink. Sclerae anicteric. Oral cavity no lesions. NECK: No JVD or lymph node enlargement. CHEST: Clear to auscultation. HEART: Regular rate and rhythm. ABDOMEN: Soft. Bowel sounds are positive. Mild tenderness in the epigastric area. EXTREMITIES: No pedal edema. SKIN: No rashes. NEUROLOGIC: Alert and oriented x3. No focal deficits. LABS: WBC 8.9, hemoglobin 9.2, MCV 112, platelets 519. AST and ALT are within normal limits. T-bilirubin 1, amylase 709, lipase 2143. IMPRESSION: Chronic relapsing pancreatitis complicated with a pseudocyst formation. CT of the abdomen showed a 3.6 cm pseudocyst in the pancreas. The patient continues to have persistent elevation of serum amylase and lipase, most likely because of the pseudocyst. RECOMMENDATIONS: 1. Advance to low-fat diet. 2. He can be discharged home tomorrow on a low-fat diet and was advised to follow up in the office in 2 weeks from now. 3. Abstinence from alcohol. Thank you for this consultation. MMODL / IJN: [id number] /
[2019-04-12 00:30] VITALS: RESP 16
[2019-04-12] MEDS: 0.9% NACL WITH KCL 40 MEQ/L 1,000 ML IV SCH ×2 (04:38→10:12)
[2019-04-12 06:51] VITALS: BP 96/52; PULSE 69; TEMP 99.2
[2019-04-12] MEDS: NICOTINE 21MG/24HR PATCH TRANSDERM SCH (07:38)
[2019-04-12 08:50] LABS: ALT 27 U/L (4-49); AST 54 U/L (17-59); African American GFR (CKD) >90 (>60 ml/min/1.73 sqM); Albumin 2.2 g/dL (3.5-5.0); Alkaline Phosphatase 142 U/L (38-126); Anion Gap 5 mmol/L; Blood Urea Nitrogen <2 mg/dL (9-20); Calcium 7.6 mg/dL (8.4-10.2); Carbon Dioxide 21 mmol/L (22-30); Chloride 109 mmol/L (98-107); Glucose 92 mg/dL (74-99); Magnesium 1.6 mg/dL (1.6-2.3); Non-African American GFR(CKD) >90 (>60 ml/min/1.73 sqM); Potassium 4.8 mmol/L (3.5-5.1); Sodium 135 mmol/L (137-145); Total Protein 5.2 g/dL (6.3-8.2)
[2019-04-12 08:53] LABS: Basophils % (A) 0 %; Eosinophils # (A) 0.1 k/uL (0-0.7); Eosinophils % (A) 1 %; HCT 30.4 % (39.0-53.0); Lymphocytes % (A) 10 %; MCH 36.4 pg (25.0-35.0); MCHC 32.9 g/dL (31.0-37.0); MCV 110.7 fL (80.0-100.0); Macrocytosis Marked; Mean Platelet Volume 8.1; Monocytes # (A) 0.4 k/uL (0-1.0); Monocytes % (A) 5 %; Neutrophils # (A) 7.8 k/uL (1.3-7.7); Neutrophils % (A) 83 %; Platelet Count 499 k/uL (150-450); RBC 2.75 m/uL (4.30-5.90); RDW 15.1 % (11.5-15.5); WBC 9.5 k/uL (3.8-10.6)
[2019-04-12] MEDS ORDERED: PANTOPRAZOLE 40 MG TABLET PO SCH (09:00)
[2019-04-12 09:56] LABS: Poikilocytosis (M) Present
--- NOTE | 2019-04-12 16:00 | P.DS ---
Providers Date of admission: 04/09/19 12:05 Expected date of discharge: 04/12/19 Attending physician: Robert Guadalupe MD Consults: 04/09/19 12:05 Consult Physician Urgent Consulting Provider: Chandni Castillo Consult Reason/Comments: Pancreatitis Do you want consulting provider notified?: Yes Primary care physician: Jessica Samuels [facility] Course: Final Diagnoses: (1) Pancreatitis, secondary to alcohol abuse Current Visit: Yes Status: Acute Code(s): K85.90 - ACUTE PANCREATITIS WITHOUT NECROSIS OR INFECTION, UNSP SNOMED Code(s): 01372029 (2) Pancreatic pseudocyst Current Visit: No Status: Acute Code(s): K86.3 - PSEUDOCYST OF PANCREAS SNOMED Code(s): 264276086 (3) moderate protein calorie malnutrition, BMI 19.8 (4) hypomagnesemia, resolved (5) hypokalemia, resolved Hospital course:Roman Briseno is a 53 yo M with PMH of alcohol abuse, pancreatitis, pancreatic pseudocyst who presented to the ED complaining of severe epigastric pain over the past 3 days. He reports a history of previous heavy drinking and episodes of pancreatitis in 2017 and 2018. Pt states that he has quit drinking for the past 3 months but may have had a few days where he relapsed. He complains of 20 lb weight loss since February and has had nausea and abdominal pain with eating. He denies fever, chills, vomiting or diarrhea. He denies bloody stools. In the ED vitals stable, WBC 13k, amylase and lipase elevated over 3000. Abd US with 7 cm pancreatic head complex mass in location of previous pseudocyst. 04/11/2019 tolerating clear liquid diet with no nausea vomiting. Currently denying abdominal pain. Requesting diet advancement. Lipase down to 2143. Magnesium 1.3 , potassium 3.6. Hemoglobin 9.2-dilutional, receiving fluids at 200 MLS per hour. Abdomen/pelvis CT pending. Evaluated by GI with recommendations noted and appreciated. Afebrile. Significant clinical improvement. Cleared by GI for discharge. Patient is being discharged home in a stable condition with guarded prognosis. - Exam General: Alert and oriented 3, no acute distress. CV: Regular rate and rhythm, no murmur. Pulses 2+ Lungs: Normal respiratory effort, no wheezes, no rales Abdomen: Soft, nontender no organomegaly, positive bowel sounds Neuro: no focal deficits The impression and plan of care has been dictated as directed. : I performed a history and examination of this patient, discussed the same with the dictator. I agree with the dictator's note ,documented as a scribe. Any additional findings or plans will be noted. Patient Condition at Discharge: Stable Plan - Discharge Summary Discharge Rx Participant: No New Discharge Prescriptions: New Nicotine 21Mg/24Hr Patch [Habitrol] 1 patch TRANSDERM DAILY #30 patch guaiFENesin-DM 100-10MG/5ML [Robitussin DM] 20 ml PO Q4H PRN #120 ml PRN Reason: Cough Continue Hydrocodone/Acetaminophen [[place] 10-325] 1 tab PO Q6H PRN PRN Reason: Pain Gabapentin [Neurontin] 300 mg PO DAILY PRN PRN Reason: Seizures Albuterol Sulfate [Proair Hfa] 1 - 2 puff INHALATION RT-QID PRN PRN Reason: Shortness Of Breath Omeprazole 20 mg PO DAILY Discontinued Ibuprofen [Motrin Ib] 400 mg PO Q6H PRN PRN Reason: Pain Discharge Medication List Gabapentin [Neurontin] 300 mg PO DAILY PRN 11/21/16 [History] Hydrocodone/Acetaminophen [[place] 10-325] 1 tab PO Q6H PRN 11/21/16 [History] Albuterol Sulfate [Proair Hfa] 1 - 2 puff INHALATION RT-QID PRN 07/17/18 [History] Omeprazole 20 mg PO DAILY 04/09/19 [History] Nicotine 21Mg/24Hr Patch [Habitrol] 1 patch TRANSDERM DAILY #30 patch 04/12/19 [Rx] guaiFENesin-DM 100-10MG/5ML [Robitussin DM] 20 ml PO Q4H PRN #120 ml 04/12/19 [Rx] Follow up Appointment(s)/Referral(s): Chandni Castillo MD [STAFF PHYSICIAN] - 05/06/19 3:30 am Jessica Samuels DO [Primary Care Provider] - 3 Days (please call to set up appt.) Ambulatory/Diagnostic Orders: Complete Blood Count w/diff [LAB.AMB] Time Frame: 3 Days, Location: None Selected Patient Instructions/Handouts: Pancreatitis (DC) Activity/Diet/Wound Care/Special Instructions: CALL AND MAKE APPT WITH DR. SAMUELS. Diet: low fat Discharge Disposition: HOME SELF-CARE
== END 2019-04-12 11:30 | disposition home or self-care (01) | DRG 439 ==
LOC: EC 09:54 → 6NMEDSUR 12:05
PROVIDERS: ADMIT Family Medicine; ATTEND Family Medicine
DX: K85.20 Alcohol induced acute pancreatitis without necrosis or infection (principal); E44.0 Moderate protein-calorie malnutrition; K86.3 Pseudocyst of pancreas; Z68.1 Body mass index [BMI] 19.9 or less, adult; K86.0 Alcohol-induced chronic pancreatitis; E83.42 Hypomagnesemia; E87.6 Hypokalemia; F17.200 Nicotine dependence, unspecified, uncomplicated; I49.3 Ventricular premature depolarization; J44.9 Chronic obstructive pulmonary disease, unspecified; K21.9 Gastro-esophageal reflux disease without esophagitis; G89.29 Other chronic pain; M54.9 Dorsalgia, unspecified; Z79.51 Long term (current) use of inhaled steroids; Z79.899 Other long term (current) drug therapy; Z96.643 Presence of artificial hip joint, bilateral; Z87.19 Personal history of other diseases of the digestive system; Z86.73 Personal history of transient ischemic attack (TIA), and cerebral infarction without residual deficits; Z87.01 Personal history of pneumonia (recurrent); Z82.0 Family history of epilepsy and other diseases of the nervous system; Z82.49 Family history of ischemic heart disease and other diseases of the circulatory system; Z83.3 Family history of diabetes mellitus
CPT/HCPCS: 36415; 74177; 76700; 80053; 80320; 82150; 83690; 83735; 84132; 84484; 85025; 85610; 85730; 90686; 93005; 96361; 96374; 96375; 99285

== ENCOUNTER 2019-12-18 10:45 | Day surgery (SDC) | payer MEDICARE, OTHER ==
[2019-12-13 15:52] VITALS: BMI 20.7
[~2019-12-18 10:45] MED LIST: ACETAMINOPHEN TAB 500 MG TAB PO ONE; DEXAMETHASONE SOD PHOSPHATE 10 MG/ML 1 ML VIAL IV ONE; HEPARIN SODIUM,PORCINE 5,000 UNIT/ML 1 ML VIAL SQ ONE; LACTATED RINGERS 1,000 ML IV SCH; LIDOCAINE 1% (10MG/ML) FOR IV START INTRADERMA PRN; MIDAZOLAM 2 MG/2 ML VIAL IV PRN; fentaNYL (PF) 50 MCG/ML 2 ML AMP IV PRN
[2019-12-18] MEDS ORDERED: ONDANSETRON 4 MG/2 ML VIAL ONE (11:24)
[2019-12-18 11:48] LABS: Glucose,Whole Blood 90 mg/dL (75-99)
[2019-12-18] MEDS ORDERED: MIDAZOLAM 2 MG/2 ML VIAL IVP ONE (11:55)
--- NOTE | 2019-12-18 11:58 | P.GSHP ---
History of Present Illness H&P Date: 12/18/19 Chief Complaint: Right inguinal hernia This a 54-year-old male who presents today for laparoscopic robotic system repair of right inguinal hernia. Patient complaints of pain in the right groin. He is found have a reducible right inguinal hernia. Past Medical History Past Medical History: COPD, CVA/TIA, Diabetes Mellitus, GERD/Reflux Additional Past Medical History / Comment(s): past ETOH abuse/ hx pancreatitis, pancreatic pseudocyst, deteriorating spine, chronic back pain, taken off HTN med and cholesterol meds but was on them in the past, 2007 TIA, mono as a teen. History of Any Multi-Drug Resistant Organisms: None Reported Past Surgical History: Joint Replacement, Orthopedic Surgery Additional Past Surgical History / Comment(s): 2016 bilateral hip arthroplasties, R elbow fracture with pins/since removed, colonoscopy with benign polyps Past Anesthesia/Blood Transfusion Reactions: No Reported Reaction Past Psychological History: Anxiety, Depression Additional Psychological History / Comment(s): states past issues with anxiety and depression, states none now, no current RX Smoking Status: Current every day smoker Past Alcohol Use History: Occasional Additional Past Alcohol Use History / Comment(s): Pt started smoking in 1980 and is a 1ppd smoker. Previously chewed tobacco, Pt has hx of alcoholism but states he now drinks occasionally, less than 14 drinks weekly Past Drug Use History: None Reported Additional Drug Use History / Comment(s): Pt denies any past drug history. - Past Family History Father Family Medical History: Dementia, Musculoskeletal Disorder, Neurologic Disorder Additional Family Medical History / Comment(s): Father of dementia/parkinson's disease recently, at the age of 75yr. Mother Family Medical History: Diabetes Mellitus, Hyperlipidemia, Hypertension Medications and Allergies Home Medications Medication Instructions Recorded Confirmed Type Gabapentin [Neurontin] 300 mg PO DAILY 11/21/16 12/18/19 History Hydrocodone/Acetaminophen [[place] 1 tab PO Q6H PRN 11/21/16 12/18/19 History 10-325] Albuterol Sulfate [Proair Hfa] 1 - 2 puff INHALATION RT-QID PRN 07/17/18 12/18/19 History Omeprazole 20 mg PO DAILY 04/09/19 12/18/19 History Umeclidinium Brm/Vilanterol Tr 1 puff INHALATION DAILY 12/13/19 12/18/19 History [Anoro Ellipta 62.5-25 Mcg INH] metFORMIN HCL [Glucophage] 500 mg PO HS 12/13/19 12/18/19 History Allergies Allergy/AdvReac Type Severity Reaction Status Date / Time No Known Allergies Allergy Verified 12/18/19 11:17 Surgical - Exam Vital Signs Temp Pulse Resp BP Pulse Ox 98.9 F 88 16 154/87 95 12/18/19 11:30 12/18/19 11:30 12/18/19 11:30 12/18/19 11:30 12/18/19 11:30 - General well developed, well nourished, no distress - Eyes PERRL - ENT normal pinna - Neck no masses - Respiratory normal expansion - Cardiovascular Rhythm: regular - Abdomen Abdomen: soft, non tender Hernia: inguinal (Right inguinal hernia) Assessment and Plan Assessment: Radial hernia. We'll perform laparoscopic robotic-assisted repair.
[2019-12-18] MEDS ORDERED: ROPIVACAINE 5 MG/ML 30 ML VIAL ONE (12:04)
[2019-12-18] MEDS ORDERED: fentaNYL (PF) 50 MCG/ML 2 ML AMP ONE (12:04)
[2019-12-18] MEDS ORDERED: SUCCINYLCHOLINE CHLORIDE 100 MG/5 ML SYR IV ONE (12:04)
[2019-12-18] MEDS ORDERED: ROCURONIUM BROMIDE 10 MG/ML 5 ML VIAL IV ONE (12:04)
[2019-12-18] MEDS ORDERED: LIDOCAINE 1% INJ 10MG/ML (20 ML MDV) ONE (12:04)
[2019-12-18] MEDS ORDERED: PHENYLEPHRINE-0.9% NACL SYG 1 MG/10 ML SYRINGE ONE (12:04)
[2019-12-18] MEDS ORDERED: PROPOFOL 10 MG/ML 20 ML VIAL IV ONE (12:04)
[2019-12-18] MEDS ORDERED: MIDAZOLAM 2 MG/2 ML VIAL ONE (12:04)
--- NOTE | 2019-12-18 12:36 | P.ANPRN ---
Procedure Note - Anesthesia - Nerve Block Performed Right Transversus Abdominis Single Time Out Performed: Yes Date of Procedure: 12/18/19 Procedure Start Time: 11:54 Procedure Stop Time: 11:58 Location of Patient: PreOp Indication: Acute Post-Operative Pain, Requested by Surgeon Sedation Type: Sedate with meaningful contact maintained Preparation: Sterile Prep, Sterile Dressing Position: Supine Catheter: Indwelling Needle Types: Pajunk Needle Gauge: 21 Ultrasound used to visualize needle placement: Yes Ultrasound used to observe medication spread: Yes Blood Aspirated: No Pain Paresthesia on Injection Noted: No Resistance on Injection: Normal Image Stored and Saved: Yes Events: Uneventful and Well Tolerated (ropi .5% 30cc plus dexamethasone 4mg)
[2019-12-18] MEDS ORDERED: BUPIVACAINE (PF) 0.25% 30 ML VIAL SQ ONE (12:37)
--- NOTE | 2019-12-18 13:39 | P.OP ---
Date of Procedure: 12/18/19 Preoperative Diagnosis: Right inguinal hernia Postoperative Diagnosis: Bilateral internal hernia Procedure(s) Performed: Laparoscopic robot-assisted pair of bilateral inguinal hernia Anesthesia: VALENTE Surgeon: Hi Chase Estimated Blood Loss (ml): 5 Pathology: none sent Condition: stable Disposition: PACU Description of Procedure: The patient's placed on the operating table in the supine position. The patient received general anesthesia. The patient's abdomen was prepped and draped in usual sterile fashion. The skin was anesthetized 1% local Xylocaine at the incision sites. Using an 11 blade a skin incision was made at the umbilicus. The fascia was grasped with a Tiara and then the peritoneal cavity was entered with the Veress needle. Position of the Veress needle was confirmed with a positive drop test. After adequate insufflation a 5 mm trocar was placed into the peritoneal cavity. The Laparoscope was placed the peritoneal cavity. And a robotic 8 mm trocar was placed in the right lateral position and then another 8 mm robotic trochars placed in the left lateral position. The original 5 mm trocar was exchanged for a 12 mm trocar. The patient was placed in reverse Trendelenburg and then the patient was docked to the robot. Next the peritoneum over top of the right inguinal hernia was incised and then using blunt and sharp dissection and electrocautery the hernia sac was dissected free from the floor of the inguinal canal. The hernia sac was completely reduced into the peritoneal cavity. And then using the Pro copy technician mesh the hernia was repaired. The peritoneum was then sutured with 20V lock suture. Next the peritoneum over top of the left inguinal hernia was incised and then using blunt and sharp dissection and electrocautery the hernia sac was dissected free from the floor of the inguinal canal. The hernia sac was completely reduced into the peritoneal cavity. And then using the Pro copy technician mesh the hernia was repaired. The peritoneum was then sutured with 20V lock suture. The patient was then undocked the robot. The needle was withdrawn from the peritoneal cavity. The umbilical trocar site was closed with 0 Ethibond suture. The skin was closed interrupted 3-0 Monocryl suture. Dermabond dressing was applied. Patient was sent to recovery in stable condition.
[2019-12-18 13:52] VITALS: TEMP 97.1
[2019-12-18 14:08] LABS: Glucose,Whole Blood 78 mg/dL (75-99)
[2019-12-18 14:19] VITALS: RESP 16
[2019-12-18 15:54] VITALS: BP 144/85; PULSE 87
== END 2019-12-18 16:03 | disposition home or self-care (01) ==
LOC: OR 10:45
PROVIDERS: ATTEND Surgery
DX: K40.20 Bilateral inguinal hernia, without obstruction or gangrene, not specified as recurrent (principal); J44.9 Chronic obstructive pulmonary disease, unspecified; E11.9 Type 2 diabetes mellitus without complications; K21.9 Gastro-esophageal reflux disease without esophagitis; M54.9 Dorsalgia, unspecified; G89.29 Other chronic pain; F41.9 Anxiety disorder, unspecified; F32.9 Major depressive disorder, single episode, unspecified; Z79.84 Long term (current) use of oral hypoglycemic drugs; Z79.899 Other long term (current) drug therapy; Z96.643 Presence of artificial hip joint, bilateral; Z98.890 Other specified postprocedural states; Z86.73 Personal history of transient ischemic attack (TIA), and cerebral infarction without residual deficits; Z86.010 Personal history of colon polyps; Z81.8 Family history of other mental and behavioral disorders; Z82.69 Family history of other diseases of the musculoskeletal system and connective tissue; Z83.3 Family history of diabetes mellitus; Z82.49 Family history of ischemic heart disease and other diseases of the circulatory system; F17.210 Nicotine dependence, cigarettes, uncomplicated
CPT/HCPCS: 49650; 64486; C1781 ×2; J2250; J1644; J1100; J0690; J2405; J2001; J3010; J2795; J2370; J0330; J2704; 64488

== ENCOUNTER 2020-02-27 06:56 | Day surgery (SDC) | payer MEDICARE, OTHER ==
[2020-02-24 14:14] VITALS: BMI 19.6
[~2020-02-27 06:56] MED LIST changes: -ACETAMINOPHEN TAB 500 MG TAB PO ONE; -DEXAMETHASONE SOD PHOSPHATE 10 MG/ML 1 ML VIAL IV ONE; -HEPARIN SODIUM,PORCINE 5,000 UNIT/ML 1 ML VIAL SQ ONE; -MIDAZOLAM 2 MG/2 ML VIAL IV PRN; -fentaNYL (PF) 50 MCG/ML 2 ML AMP IV PRN
[2020-02-27 07:23] VITALS: TEMP 97.5
[2020-02-27] MEDS ORDERED: PROPOFOL 10 MG/ML 20 ML VIAL IV ONE (07:43)
[2020-02-27] MEDS ORDERED: LIDOCAINE 1% INJ 10MG/ML (20 ML MDV) ONE (07:43)
[2020-02-27 07:54] LABS: Glucose,Whole Blood 106 mg/dL (75-99)
--- NOTE | 2020-02-27 08:02 | P.GSHP ---
History of Present Illness H&P Date: 02/27/20 Chief Complaint: Screening colonoscopy Is a 54-year-old male considered for screening colonoscopy patient denies a significant GI complaints. Past Medical History Past Medical History: Asthma, Chest Pain / Angina, COPD, Diabetes Mellitus, GERD/Reflux, Pneumonia Additional Past Medical History / Comment(s): Bronchitis, past ETOH abuse/quit drinking 2018, pancreatitis, pancreatic pseudocyst, deteriorating spine, chronic back pain, taken off HTN med and cholesterol meds but was on them in the past, 2008 TIA, mono as a teen. History of Any Multi-Drug Resistant Organisms: None Reported Past Surgical History: Orthopedic Surgery Additional Past Surgical History / Comment(s): 2016 bilateral hip arthroplasties, R elbow fracture with pins/since removed, colonoscopy with benign polyps Past Anesthesia/Blood Transfusion Reactions: No Reported Reaction Smoking Status: Current every day smoker - Past Family History Father Family Medical History: Dementia, Musculoskeletal Disorder, Neurologic Disorder Additional Family Medical History / Comment(s): Father of dementia/parkinson's disease recently, at the age of 75yr. Mother Family Medical History: Diabetes Mellitus, Hyperlipidemia, Hypertension Medications and Allergies Home Medications Medication Instructions Recorded Confirmed Type Gabapentin [Neurontin] 300 mg PO QAM 11/21/16 02/24/20 History Hydrocodone/Acetaminophen [[place] 1 tab PO Q6H PRN 11/21/16 02/27/20 History 10-325] Albuterol Sulfate [Proair Hfa] 1 - 2 puff INHALATION RT-QID PRN 07/17/18 02/27/20 History Omeprazole 20 mg PO DAILY 04/09/19 02/24/20 History Umeclidinium Brm/Vilanterol Tr 1 puff INHALATION QAM 12/13/19 02/24/20 History [Anoro Ellipta 62.5-25 Mcg INH] metFORMIN HCL [Glucophage] 500 mg PO BID 12/13/19 02/24/20 History Docusate [Colace] 100 mg PO BID #20 capsule 12/18/19 02/24/20 Rx lisinopriL [Zestril] 2.5 mg PO QAM 02/24/20 02/24/20 History Allergies Allergy/AdvReac Type Severity Reaction Status Date / Time No Known Allergies Allergy Verified 02/24/20 13:54 Surgical - Exam Vital Signs Temp Pulse Resp BP Pulse Ox 97.5 F L 98 18 106/66 99 02/27/20 07:19 02/27/20 07:19 02/27/20 07:19 02/27/20 07:19 02/27/20 07:19 - General well developed, well nourished, no distress - Eyes PERRL - ENT normal pinna, normal nares - Neck no masses - Respiratory normal expansion - Cardiovascular Rhythm: regular - Abdomen Abdomen: soft, non tender Results - Labs Abnormal Lab Results - Last 24 Hours (Table) 02/27/20 Range/Units 07:40 POC Glucose (mg/dL) 106 H (75-99) mg/dL Assessment and Plan Assessment: We'll perform screening colonoscopy.
--- NOTE | 2020-02-27 08:11 | P.OP ---
Date of Procedure: 02/27/20 Preoperative Diagnosis: Screening colonoscopy Postoperative Diagnosis: Normal colon Procedure(s) Performed: Colonoscopy Anesthesia: MAC Surgeon: Hi Chase Pathology: none sent Condition: stable Disposition: PACU Description of Procedure: PROCEDURE: The patient was placed on the endoscopy table in the lateral position. Digital rectal examination was performed which revealed no abnormalities. The prostate was symmetrical without nodules. Flexible colonoscope was then placed in the patient's anus and passed throughout the entire colon. The ileocecal valve was visualized. The cecum, ascending, transverse, descending and sigmoid colon were normal. The rectum was normal as well. There were no masses, polyps or diverticula noted in the entire colon. SUMMARY OF FINDINGS: Normal colonoscopy.
[2020-02-27 08:30] VITALS: BP 113/73; PULSE 98; RESP 17
== END 2020-02-27 09:00 | disposition home or self-care (01) ==
LOC: ORWHC2ENDO 06:56
PROVIDERS: ATTEND Surgery
DX: Z12.11 Encounter for screening for malignant neoplasm of colon (principal); K21.9 Gastro-esophageal reflux disease without esophagitis; J44.9 Chronic obstructive pulmonary disease, unspecified; E11.9 Type 2 diabetes mellitus without complications; G89.29 Other chronic pain; M54.9 Dorsalgia, unspecified; F17.210 Nicotine dependence, cigarettes, uncomplicated; I10 Essential (primary) hypertension; E78.5 Hyperlipidemia, unspecified; F41.9 Anxiety disorder, unspecified; F32.9 Major depressive disorder, single episode, unspecified; Z86.010 Personal history of colon polyps; Z87.01 Personal history of pneumonia (recurrent); Z87.09 Personal history of other diseases of the respiratory system; Z87.19 Personal history of other diseases of the digestive system; Z86.73 Personal history of transient ischemic attack (TIA), and cerebral infarction without residual deficits; F10.11 Alcohol abuse, in remission; Z86.19 Personal history of other infectious and parasitic diseases; Z98.890 Other specified postprocedural states; Z96.643 Presence of artificial hip joint, bilateral; Z87.81 Personal history of (healed) traumatic fracture; Z79.899 Other long term (current) drug therapy; Z79.891 Long term (current) use of opiate analgesic; Z79.84 Long term (current) use of oral hypoglycemic drugs; Z81.8 Family history of other mental and behavioral disorders; Z82.69 Family history of other diseases of the musculoskeletal system and connective tissue; Z82.0 Family history of epilepsy and other diseases of the nervous system; Z83.3 Family history of diabetes mellitus; Z83.438 Family history of other disorder of lipoprotein metabolism and other lipidemia; Z82.49 Family history of ischemic heart disease and other diseases of the circulatory system
CPT/HCPCS: J2001; J2704; G0105; 45378

== ENCOUNTER 2020-03-27 06:31 | Day surgery (SDC) | payer MEDICARE, OTHER ==
[~2020-03-27 06:31] MED LIST changes: +ACETAMINOPHEN TAB 500 MG TAB PO PRN; +DEXAMETHASONE SOD PHOSPHATE 4 MG/ML 1 ML VIAL IV ONE; +HEPARIN SODIUM,PORCINE 5,000 UNIT/ML 1 ML VIAL SQ PRN; -LIDOCAINE 1% (10MG/ML) FOR IV START INTRADERMA PRN; +MIDAZOLAM 2 MG/2 ML VIAL IV PRN; +ONDANSETRON 4 MG/2 ML VIAL IVP ONE; +SCOPOLAMINE 1.5MG/72HR PATCH TRANSDERM ONE
[2020-03-27] MEDS ORDERED: LIDOCAINE 1% (10MG/ML) FOR IV START INTRADERMA ONE (07:16)
[2020-03-27 07:17] LABS: Glucose,Whole Blood 107 mg/dL (75-99)
[2020-03-27] MEDS ORDERED: ROCURONIUM 10 MG/ML (10 ML VIAL) IV ONE (07:48)
[2020-03-27] MEDS ORDERED: MIDAZOLAM 2 MG/2 ML VIAL ONE (07:48)
[2020-03-27] MEDS ORDERED: PROPOFOL 10 MG/ML 20 ML VIAL IV ONE (07:48)
[2020-03-27] MEDS ORDERED: LIDOCAINE 1% INJ 10MG/ML (20 ML MDV) ONE (07:48)
[2020-03-27] MEDS ORDERED: NEOSTIGMINE 1 MG/ML 10 ML VIAL ONE (07:48)
[2020-03-27] MEDS ORDERED: SUCCINYLCHOLINE CHLORIDE 100 MG/5 ML SYR IV ONE (07:48)
[2020-03-27] MEDS ORDERED: GLYCOPYRROLATE 0.2 MG/ML 2 ML VIAL ONE (07:48)
[2020-03-27] MEDS ORDERED: PHENYLEPHRINE 10 MG/ML VIAL ONE (07:48)
[2020-03-27] MEDS ORDERED: fentaNYL (PF) 50 MCG/ML 2 ML AMP ONE (07:48)
[2020-03-27] MEDS ORDERED: BUPIVACAINE (PF) 0.25% 30 ML VIAL SQ ONE ×2 (07:50→08:07)
[2020-03-27] MEDS: HYDROmorphone 0.5 MG/0.5 ML SYRINGE IVP PRN ×2 (08:45→09:00)
[2020-03-27] MEDS ORDERED: KETOROLAC 15 MG/ML 1 ML VIAL IVP ONE (08:47)
[2020-03-27] MEDS ORDERED: LACTATED RINGERS 1,000 ML IV ONE (08:50)
[2020-03-27 08:53] VITALS: TEMP 96.8
[2020-03-27 09:08] LABS: Glucose,Whole Blood 115 mg/dL (75-99)
--- NOTE | 2020-03-27 09:19 | P.GSHP ---
History of Present Illness H&P Date: 03/27/20 Chief Complaint: Right upper quadrant pain This 54-year-old male with chronic plantar quadrant pain. Patient is undergoing laparoscopic cholecystectomy for chronic cholecystitis. Past Medical History Past Medical History: COPD, Diabetes Mellitus, GERD/Reflux, Osteoarthritis (OA), Pneumonia Additional Past Medical History / Comment(s): pancreatitis, deteriorating spine, chronic back pain, migraines, states had minor stroke, gallbladder cancer, constipation, History of Any Multi-Drug Resistant Organisms: None Reported Past Surgical History: Hernia Repair, Orthopedic Surgery Additional Past Surgical History / Comment(s): bilateral hip arthroplasties, R elbow fracture with pins/since removed, farhan inguinal hernia 02/06 Past Anesthesia/Blood Transfusion Reactions: No Reported Reaction Smoking Status: Current every day smoker - Past Family History Father Family Medical History: Dementia, Musculoskeletal Disorder, Neurologic Disorder Additional Family Medical History / Comment(s): Father of dementia/parkinson's disease recently, at the age of 75yr. Mother Family Medical History: No Reported History Medications and Allergies Home Medications Medication Instructions Recorded Confirmed Type Gabapentin [Neurontin] 300 mg PO QAM 11/21/16 03/23/20 History Hydrocodone/Acetaminophen [[place] 1 tab PO Q6H PRN 11/21/16 03/23/20 History 10-325] Albuterol Sulfate [Proair Hfa] 1 - 2 puff INHALATION RT-QID PRN 07/17/18 03/23/20 History Omeprazole 20 mg PO DAILY 04/09/19 03/27/20 History Umeclidinium Brm/Vilanterol Tr 1 puff INHALATION QAM 12/13/19 03/27/20 History [Anoro Ellipta 62.5-25 Mcg INH] metFORMIN HCL [Glucophage] 500 mg PO BID 12/13/19 03/27/20 History lisinopriL [Zestril] 2.5 mg PO PC-SUPPER 02/24/20 03/27/20 History Lactose-Reduced Food [Ensure Plus] 2 can PO DAILY 03/23/20 03/23/20 History Naproxen Sodium [Aleve] 220 mg PO Q12HR PRN 03/23/20 03/23/20 History Allergies Allergy/AdvReac Type Severity Reaction Status Date / Time No Known Allergies Allergy Verified 03/27/20 06:55 Surgical - Exam Vital Signs Temp Pulse Resp BP Pulse Ox 98.0 F 94 16 136/84 100 03/27/20 06:53 03/27/20 06:53 03/27/20 06:53 03/27/20 06:53 03/27/20 06:53 - General well developed, well nourished, no distress - Eyes PERRL - ENT normal pinna - Neck no masses - Respiratory normal expansion - Cardiovascular Rhythm: regular - Abdomen Abdomen: soft, non tender Results - Labs Abnormal Lab Results - Last 24 Hours (Table) 03/27/20 Range/Units 07:12 POC Glucose (mg/dL) 107 H (75-99) mg/dL Assessment and Plan Assessment: Right upper quadrant pain Chronic cholecystitis We'll perform laparoscopic cholecystectomy
--- NOTE | 2020-03-27 09:20 | P.OP ---
Date of Procedure: 03/27/20 Preoperative Diagnosis: Chronic cholecystitis Postoperative Diagnosis: Chronic cholecystitis Procedure(s) Performed: Laparoscopic cholecystectomy Anesthesia: VALENTE Surgeon: Hi Chase Estimated Blood Loss (ml): 5 Pathology: other (Gallbladder) Condition: stable Disposition: PACU Description of Procedure: The patient was placed on the operating table. The patient received a general endotracheal tube anesthesia. The patients abdomen was prepped and draped in the usual sterile fashion. Through an infraumbilical stab incision, the fascia of the anterior abdominal wall was grasped with a pair of Kochers and then the Veress needle was placed in the peritoneal cavity. Position of the Veress needle was confirmed with positive drop test. The abdomen was then insufflated. After adequate insufflation, the 10 mm trocar was placed in the peritoneal cavity. Following this the laparoscope was placed in the peritoneal cavity. The patient was placed in the head-up, right side up position and then a 5 mm trocar was placed in the right lateral and right subcostal position under direct visualization. A 8 mm trocar was placed in the epigastric position. The gallbladder was grasped in the fundus and infundibulum. Traction on the gallbladder was placed in the lateral and the cephalad positions. The triangle of Calot was visualized.. The cystic duct was bluntly dissected until the union of the cystic duct and common bile duct was seen. A critical view of safety was achieved. The cystic duct was then divided and sealed with the Harmonic scissors. A PDS Endoloop was then placed throughout the cystic duct stump. The cystic artery divided and sealed with the Harmonic scissors. The gallbladder was then removed from the liver bed using Harmonic scissors. The gallbladder was then extracted through the epigastric port site. Operative field was checked for any bleeding spots and Harmonic scissors was used to coagulate the liver bed. The abdomen was irrigated. The trocars were removed. The skin was closed using interrupted 3-0 Vicryl suture. Dermabond dressing were applied. The patient tolerated the procedure well.
[2020-03-27 10:24] VITALS: BP 163/87; PULSE 101; RESP 18
== END 2020-03-27 10:53 | disposition home or self-care (01) ==
LOC: OR 06:31
PROVIDERS: ATTEND Surgery
DX: K80.10 Calculus of gallbladder with chronic cholecystitis without obstruction (principal); J44.9 Chronic obstructive pulmonary disease, unspecified; E11.9 Type 2 diabetes mellitus without complications; K21.9 Gastro-esophageal reflux disease without esophagitis; M19.90 Unspecified osteoarthritis, unspecified site; Z87.01 Personal history of pneumonia (recurrent); Z87.19 Personal history of other diseases of the digestive system; G89.29 Other chronic pain; M54.9 Dorsalgia, unspecified; G43.909 Migraine, unspecified, not intractable, without status migrainosus; Z86.73 Personal history of transient ischemic attack (TIA), and cerebral infarction without residual deficits; Z96.643 Presence of artificial hip joint, bilateral; Z98.890 Other specified postprocedural states; Z87.81 Personal history of (healed) traumatic fracture; F17.200 Nicotine dependence, unspecified, uncomplicated; Z81.8 Family history of other mental and behavioral disorders; Z82.0 Family history of epilepsy and other diseases of the nervous system; Z79.84 Long term (current) use of oral hypoglycemic drugs; Z79.899 Other long term (current) drug therapy; Z79.1 Long term (current) use of non-steroidal anti-inflammatories (NSAID)
CPT/HCPCS: 88304; 47562; J2250; J1644; J1100; J2370; J2710; J0690; J2405; J2001; J3010; J1885; J0330; J2704; J1170

== ENCOUNTER → 2020-06-03 | Outpatient (CLI) | payer MEDICARE, OTHER ==
--- NOTE | 2020-06-03 09:48 | CT ---
EXAMINATION TYPE: CT abdomen w con DATE OF EXAM: 06/03/2020 COMPARISON: CT abdomen and pelvis April 11, 2019 and older CTs HISTORY: Elevated liver function test, wt. loss CT DLP: 284.7 mGycm, Automated Exposure Control for Dose Reduction was Utilized. CONTRAST: CT scan of the abdomen is performed with oral and with IV Contrast, patient injected with 100 mL of I sovue 300. FINDINGS: LUNG BASES: Dependent atelectasis in both bases. Coronary artery calcification in the RCA distributio n LIVER/GB: Liver size stable and mildly enlarged with prominent right hepatic lobe. Gallbladder is now surgically absent. Visualized Liver heterogeneously hypodense consistent with fatty infiltration. Bi le ducts more prominent after cholecystectomy but measure within normal limits, common bile duct migdalia ures up to 8 mm in diameter. PANCREAS: There is now scattered glandular calcifications in the pancreatic head at site of prior cys ts or cystic lesions. Pancreatic duct is visualized measuring upper limits of normal and the head and proximal body. SPLEEN: Scattered punctate calcifications throughout the spleen redemonstrated. Findings consistent w ith product of old granulomatous disease.. ADRENALS: No significant abnormality is seen. KIDNEYS: No significant abnormality is seen. BOWEL: The oral contrast reaches level of the splenic flexure. No suspicious small or large bowel dil atation. Moderate diffuse gastric wall thickening in poorly distended stomach is nonspecific, similar findings on prior studies. New prominent haustra and/or focal wall thickening in the colon at level of hepatic flexure axial image 40 and coronal image 36. Follow-up colonoscopy is advised to rule out neoplasm at this level. LYMPH NODES: No greater than 1cm abdominal lymph nodes are appreciated. OSSEOUS STRUCTURES: No significant abnormality is seen. OTHER: Moderate to severe calcified plaque of the aorta extends into branch vessels.. IMPRESSION: 1. Diffuse fatty infiltration of liver redemonstrated. Stable mild hepatomegaly. No new concerning he patic mass. Bile ducts slightly more prominent but within normal limits after cholecystectomy. Interv al cholecystectomy noted from most recent CT. 2. Findings of chronic pancreatitis noted in the pancreatic head with interval progression from prior CTs. 3. Area of suspicion focal wall thickening in the colon near hepatic flexure, advise colonoscopy to r ule out neoplasm at this level if has not been performed in last 3 years.
== END ==
LOC: RADCTMAIN 07:19
PROVIDERS: ATTEND Family Medicine
DX: K76.0 Fatty (change of) liver, not elsewhere classified (principal); K86.1 Other chronic pancreatitis; R16.0 Hepatomegaly, not elsewhere classified; Z90.49 Acquired absence of other specified parts of digestive tract
CPT/HCPCS: 74160; Q9967

== ENCOUNTER 2020-07-02 06:48 | Day surgery (SDC) | payer MEDICARE, OTHER ==
[~2020-07-02 06:48] MED LIST changes: -ACETAMINOPHEN TAB 500 MG TAB PO PRN; -DEXAMETHASONE SOD PHOSPHATE 4 MG/ML 1 ML VIAL IV ONE; -HEPARIN SODIUM,PORCINE 5,000 UNIT/ML 1 ML VIAL SQ PRN; +LIDOCAINE 1% (10MG/ML) FOR IV START INTRADERMA PRN; -MIDAZOLAM 2 MG/2 ML VIAL IV PRN; -ONDANSETRON 4 MG/2 ML VIAL IVP ONE; -SCOPOLAMINE 1.5MG/72HR PATCH TRANSDERM ONE
[2020-07-02 07:20] VITALS: TEMP 98.8
[2020-07-02 07:35] LABS: Glucose,Whole Blood 100 mg/dL (75-99)
[2020-07-02] MEDS ORDERED: PROPOFOL 10 MG/ML 20 ML VIAL IV ONE (07:47)
[2020-07-02] MEDS ORDERED: LIDOCAINE 1% INJ 10MG/ML (20 ML MDV) ONE (07:47)
--- NOTE | 2020-07-02 07:57 | P.GSHP ---
History of Present Illness H&P Date: 07/02/20 Chief Complaint: Constipation, change in bowel habits This is a 54-year-old male who presents today for colonoscopy. He's had issues with constipation and change in bowel habits. He presents today for colonoscopy. Patient has a previous history of history of colon polyps. Past Medical History Past Medical History: COPD, CVA/TIA, Diabetes Mellitus, GERD/Reflux, Osteoarthritis (OA), Pneumonia Additional Past Medical History / Comment(s): pancreatitis, deteriorating spine, chronic back pain, migraines, states had minor stroke, constipation, History of Any Multi-Drug Resistant Organisms: None Reported Past Surgical History: Hernia Repair, Joint Replacement, Orthopedic Surgery Additional Past Surgical History / Comment(s): bilateral hip arthroplasties, R elbow fracture with pins/since removed, farhan inguinal hernia 02/06 Past Anesthesia/Blood Transfusion Reactions: No Reported Reaction Smoking Status: Current every day smoker - Past Family History Father Family Medical History: Dementia, Musculoskeletal Disorder, Neurologic Disorder Additional Family Medical History / Comment(s): Father of dementia/parkinson's disease recently, at the age of 75yr. Mother Family Medical History: No Reported History Medications and Allergies Home Medications Medication Instructions Recorded Confirmed Type Gabapentin [Neurontin] 300 mg PO QAM 11/21/16 07/02/20 History Hydrocodone/Acetaminophen [[place] 1 tab PO Q6H PRN 11/21/16 07/02/20 History 10-325] Albuterol Sulfate [Proair Hfa] 1 - 2 puff INHALATION RT-QID PRN 07/17/18 07/02/20 History Omeprazole 20 mg PO DAILY 04/09/19 07/02/20 History Umeclidinium Brm/Vilanterol Tr 1 puff INHALATION QAM 12/13/19 07/02/20 History [Anoro Ellipta 62.5-25 Mcg INH] metFORMIN HCL [Glucophage] 500 mg PO BID 12/13/19 07/02/20 History lisinopriL [Zestril] 2.5 mg PO PC-SUPPER 02/24/20 07/02/20 History Lactose-Reduced Food [Ensure Plus] 2 can PO DAILY 03/23/20 07/02/20 History Naproxen Sodium [Aleve] 220 mg PO Q12HR PRN 03/23/20 07/02/20 History Acetaminophen Tab [Tylenol] 650 mg PO Q6H #30 tab 03/27/20 07/02/20 Rx Allergies Allergy/AdvReac Type Severity Reaction Status Date / Time No Known Allergies Allergy Verified 07/02/20 07:16 Surgical - Exam Vital Signs Temp Pulse Resp BP Pulse Ox 98.8 F 99 16 140/79 97 07/02/20 07:10 07/02/20 07:10 07/02/20 07:10 07/02/20 07:10 07/02/20 07:10 - General well developed, well nourished, no distress - Eyes PERRL - ENT normal pinna - Neck no masses - Respiratory normal expansion - Cardiovascular Rhythm: regular - Abdomen Abdomen: soft, non tender Results - Labs Abnormal Lab Results - Last 24 Hours (Table) 07/02/20 Range/Units 07:27 POC Glucose (mg/dL) 100 H (75-99) mg/dL Assessment and Plan Assessment: History of colon polyps. Acute history of constipation. We'll perform colonoscopy.
--- NOTE | 2020-07-02 08:09 | P.OP ---
Date of Procedure: 07/02/20 Preoperative Diagnosis: Constipation Postoperative Diagnosis: Rectal polyp Procedure(s) Performed: Colonoscopy Anesthesia: MAC Surgeon: Hi Chase Pathology: other (Polyp. Rectal) Condition: stable Disposition: PACU Description of Procedure: The patient's placed on the endoscopy table lateral position. IV sedation. Digital rectal exam was performed which revealed no abnormalities. The prostate was symmetrical without nodules. The flexible colonoscope was then placed patient anus and passed rotator entire colon. The ileocecal valve was visualized. Cecum, ascending and transverse colon appeared normal. The descending and sigmoid colon. All. The rectum there was a small polyp was removed the snare. The scope was then withdrawn from the rectum. Scope was withdrawn for patient.
[2020-07-02 08:37] VITALS: BP 145/89; PULSE 97; RESP 14
== END 2020-07-02 08:56 | disposition home or self-care (01) ==
LOC: ORWHC2ENDO 06:48
PROVIDERS: ATTEND Surgery
DX: D12.8 Benign neoplasm of rectum (principal); K76.0 Fatty (change of) liver, not elsewhere classified; Z86.010 Personal history of colon polyps; G47.00 Insomnia, unspecified; R64 Cachexia; J44.9 Chronic obstructive pulmonary disease, unspecified; Z86.73 Personal history of transient ischemic attack (TIA), and cerebral infarction without residual deficits; E11.9 Type 2 diabetes mellitus without complications; K21.9 Gastro-esophageal reflux disease without esophagitis; M19.90 Unspecified osteoarthritis, unspecified site; F41.9 Anxiety disorder, unspecified; F32.9 Major depressive disorder, single episode, unspecified; Z87.01 Personal history of pneumonia (recurrent); Z87.19 Personal history of other diseases of the digestive system; Z96.643 Presence of artificial hip joint, bilateral; Z98.890 Other specified postprocedural states; F17.200 Nicotine dependence, unspecified, uncomplicated; Z81.8 Family history of other mental and behavioral disorders; Z82.0 Family history of epilepsy and other diseases of the nervous system; Z79.1 Long term (current) use of non-steroidal anti-inflammatories (NSAID); Z79.891 Long term (current) use of opiate analgesic; Z79.84 Long term (current) use of oral hypoglycemic drugs; Z79.899 Other long term (current) drug therapy
CPT/HCPCS: 88305; 45385; J2001; J2704

== ENCOUNTER 2024-07-11 13:11 | Emergency (ER) | payer MEDICARE, OTHER ==
[2024-07-11 13:16] VITALS: RESP 20; TEMP 98.6
[2024-07-11] MEDS: ONDANSETRON 4 MG/2 ML VIAL IVP STA (13:42)
[2024-07-11] MEDS: LACTATED RINGERS 1,000 ML IV ONE (13:43)
[2024-07-11] MEDS: HYDROmorphone 1 MG/ML 1 ML SYRINGE IVP STA (13:44)
[2024-07-11 13:57] LABS: Basophils # (A) 0.08 10*3/uL (0.00-0.10); Basophils % (A) 0.7 %; Eosinophils # (A) 0.09 10*3/uL (0.04-0.35); Eosinophils % (A) 0.8 %; HCT 40.1 % (39.6-50.0); HGB 14.7 g/dL (13.0-17.0); Lymphocytes # (A) 2.11 10*3/uL (0.90-5.00); MCH 33.5 pg (27.0-32.0); MCHC 36.7 g/dL (32.0-37.0); MCV 91.3 fL (80.0-97.0); Mean Platelet Volume 12.2 fL (9.5-12.2); Monocytes # (A) 1.43 10*3/uL (0.20-1.00); Monocytes % (A) 12.2 %; Neutrophils # (A) 7.95 10*3/uL (1.80-7.70); Neutrophils % (A) 67.9 %; Platelet Count 246 10*3/uL (140-440); RBC 4.39 10*6/uL (4.40-5.60); RDW 11.8 % (11.5-14.5); WBC 11.71 10*3/uL (4.50-10.00)
--- NOTE | 2024-07-11 13:58 | ED ---
General Adult HPI - General Chief complaint: Abdominal Pain Stated complaint: N/V,Weakness Time Seen by Provider: 07/11/24 13:17 Source: patient, EMS, RN notes reviewed, old records reviewed Limitations: no limitations - History of Present Illness Initial comments: 58-year-old male presenting for evaluation of epigastric abdominal pain. Patient has a history of pancreatitis. He states he had been abstaining from alcohol for several months but did have a drink within the past week. He has had significant vomiting since that time. No fever. - Related Data Home Medications Medication Instructions Recorded Confirmed Omeprazole 20 mg PO BID 04/09/19 06/23/21 metFORMIN HCL [Glucophage] 500 mg PO DAILY 12/13/19 06/23/21 lisinopriL [Zestril] 2.5 mg PO DAILY 02/24/20 06/23/21 Ferrous Sulfate [Feosol] 325 mg PO DAILY 06/23/21 06/23/21 Gabapentin [Neurontin] 100 mg PO DAILY 06/23/21 06/23/21 Magnesium Oxide [Mag-Ox] 400 mg PO HS 06/23/21 06/23/21 Sertraline [Zoloft] 50 mg PO DAILY 06/23/21 06/23/21 Previous Rx's Medication Instructions Recorded Omeprazole [PriLOSEC] 20 mg PO AC-BID #60 cap 07/11/24 Allergies Allergy/AdvReac Type Severity Reaction Status Date / Time No Known Allergies Allergy Verified 07/11/24 13:16 Review of Systems ROS Statement: Those systems with pertinent positive or pertinent negative responses have been documented in the HPI. ROS Other: All systems not noted in ROS Statement are negative. Past Medical History Past Medical History: COPD, CVA/TIA, GERD/Reflux, Osteoarthritis (OA), Pneumonia Additional Past Medical History / Comment(s): pancreatitis, deteriorating spine, chronic back pain, migraines, states had minor stroke, constipation, History of Any Multi-Drug Resistant Organisms: None Reported Past Surgical History: Hernia Repair, Joint Replacement, Orthopedic Surgery Additional Past Surgical History / Comment(s): bilateral hip arthroplasties, R elbow fracture with pins/since removed, farhan inguinal hernia 02/06 Past Anesthesia/Blood Transfusion Reactions: No Reported Reaction Past Psychological History: Anxiety, Depression Smoking Status: Current every day smoker Past Alcohol Use History: Occasional Past Drug Use History: Marijuana - Past Family History Father Family Medical History: Dementia, Musculoskeletal Disorder, Neurologic Disorder Additional Family Medical History / Comment(s): Father of dementia/parkinson's disease recently, at the age of 75yr. Mother Family Medical History: No Reported History General Exam Limitations: no limitations General appearance: alert, in no apparent distress Head exam: Present: atraumatic Eye exam: Present: normal appearance, PERRL ENT exam: Present: mucous membranes dry Neck exam: Present: normal inspection. Absent: tenderness, meningismus Respiratory exam: Present: normal lung sounds bilaterally. Absent: respiratory distress, wheezes Cardiovascular Exam: Present: regular rate, normal rhythm GI/Abdominal exam: Present: soft, tenderness (Epigastric). Absent: distended Course Vital Signs 07/11/24 07/11/24 13:13 15:30 Temperature 98.6 F Pulse Rate 84 82 Respiratory 20 20 Rate Blood Pressure 117/78 125/75 O2 Sat by Pulse 99 97 Oximetry Medical Decision Making - Medical Decision Making Was pt. sent in by a medical professional or institution (, PA, OFFICE ASSISTANT RECEPTIONIST, urgent care, hospital, or care home...) When possible be specific @ -No Did you speak to anyone other than the patient for history (EMS, parent, family, police, friend...)? What history was obtained from this source @ -No Did you review nursing and triage notes (agree or disagree)? Why? @ -I reviewed and agree with nursing and triage notes Were old charts reviewed (outside hosp., previous admission, EMS record, old EKG, old radiological studies, urgent care reports/EKG's, care home records)? Report findings @ -No old charts were reviewed Differential Abdominal Pain Men: Appendicitis, cholecystitis, diverticulosis, ischemic bowel, pancreatitis, hepatitis, UTI, gastroenteritis, AAA, incarcerated hernia, bowel obstruction, constipation, inflammatory bowel, hepatitis, peptic ulcer disease, splenic infarction, perforated viscus, testicular torsion, this is not meant to be an all-inclusive list EKG interpreted by me (3pts min.). @ -Sinus rhythm rate of 76 PA interval 144, QRS duration 126, QTc 458 X-rays interpreted by me (1pt min.). @ -None done CT interpreted by me (1pt min.). @ -[CT showing chronic changes including chronic pancreatitis and biliary duct dilatation which is persistent. No signs of acute pancreatitis. Duodenitis, possible neoplasm U/S interpreted by me (1pt. min.). @ -None done What testing was considered but not performed or refused? (CT, X-rays, U/S, labs)? Why? @ -None What meds were considered but not given or refused? Why? @ -None Did you discuss the management of the patient with other professionals (professionals i.e. Dr., PA, OFFICE ASSISTANT RECEPTIONIST, lab, RT, psych nurse, social scientist, brick tester, teacher, revenue officer, case packer)? Give summary @ -No Was smoking cessation discussed for >3mins.? @ -No Was critical care preformed (if so, how long)? @ -No Were there social determinants of health that impacted care today? How? (Homelessness, low income, unemployed, alcoholism, drug addiction, transportation, low edu. Level, literacy, decrease access to med. care, correction, rehab)? @ -No Was there de-escalation of care discussed even if they declined (Discuss DNR or withdrawal of care, Hospice)? DNR status @ -No What co-morbidities impacted this encounter? (DM, HTN, Smoking, COPD, CAD, Cancer, CVA, ARF, Chemo, Hep., AIDS, mental health diagnosis, sleep apnea, morbid obesity)? @ -[Alcohol abuse, chronic pancreatitis Was patient admitted / discharged? Hospital course, mention meds given and route, prescriptions, significant lab abnormalities, going to OR and other pertinent info. @58-year-old male history of chronic pancreatitis presenting for evaluation of epigastric abdominal pain after drinking alcohol. Patient had been sober for several months and states that he drank several days ago causing increased pain and nausea vomiting. Patient does appear mildly dehydrated upon initial evaluation, given IV fluids and symptomatic treatment. Patient has a negative lipase, hyponatremia, hypochloremic he does feel better on reevaluation. Instructed to abstain from alcohol and instructed on clear liquid diet until symptoms improve. he should take omeprazole and follow with gastroenterology Undiagnosed new problem with uncertain prognosis? @ -No Drug Therapy requiring intensive monitoring for toxicity (Heparin, Nitro, Insulin, Cardizem)? @ -No Were any procedures done? @ -No Diagnosis/symptom? @ -[Abdominal pain Acute, or Chronic, or Acute on Chronic? @ -Acute Uncomplicated (without systemic symptoms) or Complicated (systemic symptoms)? @ -Default Side effects of treatment? @ -No Exacerbation, Progression, or Severe Exacerbation? @ -No Poses a threat to life or bodily function? How? (Chest pain, [place], [place], pneumonia, PE, COPD, DKA, ARF, appy, cholecystitis, CVA, Diverticulitis, Homicidal, Suicidal, threat to staff... and all critical care pts) @ -No - Lab Data Result diagrams: 07/11/24 13:33 07/11/24 13:33 Lab Results 07/11/24 07/11/24 07/11/24 Range/Units 13:33 13:33 13:33 WBC 11.71 H (4.50-10.00) 10*3/uL RBC 4.39 L (4.40-5.60) 10*6/uL Hgb 14.7 (13.0-17.0) g/dL Hct 40.1 (39.6-50.0) % MCV 91.3 (80.0-97.0) fL MCH 33.5 H (27.0-32.0) pg MCHC 36.7 (32.0-37.0) g/dL Plt Count 246 (140-440) 10*3/uL MPV 12.2 (9.5-12.2) fL Immature Gran % (Auto) 0.4 % Neutrophils % 67.9 % Lymphocytes % 18.0 % Monocytes % 12.2 % Eosinophils % 0.8 % Basophils % 0.7 % Immature Gran # 0.05 H (0.00-0.04) 10*3/uL Neutrophils # 7.95 H (1.80-7.70) 10*3/uL Lymphocytes # 2.11 (0.90-5.00) 10*3/uL Monocytes # 1.43 H (0.20-1.00) 10*3/uL Eosinophils # 0.09 (0.04-0.35) 10*3/uL Basophils # 0.08 (0.00-0.10) 10*3/uL PT 11.2 (10.0-12.5) sec INR 1.0 (<1.2) APTT 22.6 (22.0-30.0) sec Sodium (137-145) mmol/L Potassium (3.5-5.1) mmol/L Chloride (98-107) mmol/L Carbon Dioxide (22-30) mmol/L Anion Gap mmol/L BUN (9-20) mg/dL Creatinine (0.66-1.25) mg/dL Est GFR (CKD-EPI)AfAm (>60 ml/min/1.73 sqM) Est GFR (CKD-EPI)NonAf (>60 ml/min/1.73 sqM) Glucose (74-99) mg/dL Plasma Lactic Acid Jamel (0.7-2.0) mmol/L Calcium (8.4-10.2) mg/dL Total Bilirubin (0.2-1.3) mg/dL AST (17-59) U/L ALT (4-49) U/L Alkaline Phosphatase (38-126) U/L Total Protein (6.3-8.2) g/dL Albumin (3.5-5.0) g/dL Amylase (30-110) U/L Lipase (23-300) U/L Urine Color Yellow Urine Appearance Clear (Clear) Urine pH 7.0 (5.0-8.0) Ur Specific [place] 1.017 (1.001-1.035) Urine Protein Negative (Negative) Urine Glucose (UA) Negative (Negative) Urine Ketones Trace H (Negative) Urine Blood Negative (Negative) Urine Nitrite Negative (Negative) Urine Bilirubin Negative (Negative) Urine Urobilinogen <2.0 (<2.0) mg/dL Ur Leukocyte Esterase Negative (Negative) 07/11/24 07/11/24 Range/Units 13:33 13:33 WBC (4.50-10.00) 10*3/uL RBC (4.40-5.60) 10*6/uL Hgb (13.0-17.0) g/dL Hct (39.6-50.0) % MCV (80.0-97.0) fL MCH (27.0-32.0) pg MCHC (32.0-37.0) g/dL Plt Count (140-440) 10*3/uL MPV (9.5-12.2) fL Immature Gran % (Auto) % Neutrophils % % Lymphocytes % % Monocytes % % Eosinophils % % Basophils % % Immature Gran # (0.00-0.04) 10*3/uL Neutrophils # (1.80-7.70) 10*3/uL Lymphocytes # (0.90-5.00) 10*3/uL Monocytes # (0.20-1.00) 10*3/uL Eosinophils # (0.04-0.35) 10*3/uL Basophils # (0.00-0.10) 10*3/uL PT (10.0-12.5) sec INR (<1.2) APTT (22.0-30.0) sec Sodium 130 L (137-145) mmol/L Potassium 3.5 (3.5-5.1) mmol/L Chloride 75 L (98-107) mmol/L Carbon Dioxide 39 H (22-30) mmol/L Anion Gap 16 mmol/L BUN 41 H (9-20) mg/dL Creatinine 1.16 (0.66-1.25) mg/dL Est GFR (CKD-EPI)AfAm 80 (>60 ml/min/1.73 sqM) Est GFR (CKD-EPI)NonAf 69 (>60 ml/min/1.73 sqM) Glucose 110 H (74-99) mg/dL Plasma Lactic Acid Jamel 1.5 (0.7-2.0) mmol/L Calcium 10.9 H (8.4-10.2) mg/dL Total Bilirubin 1.3 (0.2-1.3) mg/dL AST 43 (17-59) U/L ALT 46 (4-49) U/L Alkaline Phosphatase 105 (38-126) U/L Total Protein 8.0 (6.3-8.2) g/dL Albumin 4.4 (3.5-5.0) g/dL Amylase 132 H (30-110) U/L Lipase 262 (23-300) U/L Urine Color Urine Appearance (Clear) Urine pH (5.0-8.0) Ur Specific [place] (1.001-1.035) Urine Protein (Negative) Urine Glucose (UA) (Negative) Urine Ketones (Negative) Urine Blood (Negative) Urine Nitrite (Negative) Urine Bilirubin (Negative) Urine Urobilinogen (<2.0) mg/dL Ur Leukocyte Esterase (Negative) Disposition Clinical Impression: Abdominal pain Disposition: HOME SELF-CARE Condition: Fair Instructions (If sedation given, give patient instructions): Abdominal Pain (ED) Additional Instructions: Please do not drink any alcohol please take omeprazole and follow-up with gastroenterology and your primary care provider Prescriptions: Omeprazole [PriLOSEC] 20 mg PO AC-BID #60 cap Is patient prescribed a controlled substance at d/c from ED?: No Referrals: Curly London [Primary Care Provider] - 1-2 days Chandni Castillo MD [STAFF PHYSICIAN] - 1-2 days Time of Disposition: 16:44
[2024-07-11 14:09] LABS: ALT 46 U/L (4-49); African American GFR (CKD) 80 (>60 ml/min/1.73 sqM); Alkaline Phosphatase 105 U/L (38-126); Blood Urea Nitrogen 41 mg/dL (9-20); Calcium 10.9 mg/dL (8.4-10.2); Chloride 75 mmol/L (98-107); Glucose 110 mg/dL (74-99); Lipase 262 U/L (23-300); Non-African American GFR(CKD) 69 (>60 ml/min/1.73 sqM); Sodium 130 mmol/L (137-145); Total Bilirubin 1.3 mg/dL (0.2-1.3)
[2024-07-11 14:11] LABS: Prothrombin Time 11.2 sec (10.0-12.5)
[2024-07-11 14:15] LABS: Anion Gap 16 mmol/L
[2024-07-11 14:17] LABS: Partial Thromboplastin Time 22.6 sec (22.0-30.0)
[2024-07-11 14:22] LABS: Carbon Dioxide 39 mmol/L (22-30); Potassium 3.5 mmol/L (3.5-5.1)
[2024-07-11 14:23] LABS: AST 43 U/L (17-59); Albumin 4.4 g/dL (3.5-5.0); Amylase 132 U/L (30-110)
[2024-07-11 15:48] VITALS: PULSE 82
--- NOTE | 2024-07-11 16:22 | CT ---
EXAMINATION TYPE: CT abdomen pelvis w con DATE OF EXAM: 07/11/2024 COMPARISON: 06/23/2021 CLINICAL INDICATION: Male, 58 years old with history of abdominal pain/epigastric; PHH, ABDOMINAL MORGAN N/EPIGASTRIC TECHNIQUE: Performed without Oral Contrast and with IV Contrast, patient injected with 100 cc mL of Isovue 300. CT DLP: 479.[address] CTDI: mGy Automated exposure control for dose reduction was used. FINDINGS: The lung bases are clear. There is surgical absence of the gallbladder. There is persistent intrahepatic and extra hepatic biliary ductal dilatation. There is stable dilatat ion of the pancreatic duct. There is interval worsening of the wall thickening of the second portion of the duodenum. Neoplasm is not entirely excluded. There are stable calcifications in the pancreas consistent with chronic pancreatitis. There is no xiomy dence of acute pancreatitis. There are no pancreatic masses There is a 14 mm rim-enhancing mass in the lateral segment left lobe of liver which was seen on the p rior study and is essentially stable. Statistically most likely represents a benign hemangioma. There are multiple splenic granulomas. There are no adrenal masses. There is no solid renal mass or hydronephrosis and there is homogeneous contrast enhancement of the r enal parenchyma. The caliber the abdominal aorta is normal is no retroperitoneal adenopathy or hemorrhage. There is mo derate to marked arteriosclerotic calcification of the abdominal aorta and iliac vessels. There is no bowel obstruction. There is no free intraperitoneal air or fluid. There is no free intraperitoneal air or fluid. Evaluation of pelvis is limited due to metallic artifact from bilateral hip prostheses. There are no focal osseous lesions. IMPRESSION: 1. Persistent intra and extrahepatic biliary ductal dilatation and pancreatic duct dilatation. 2. Marked thickening of the second portion the duodenum consistent with duodenitis or possibly duoden al neoplasm. 3. Chronic pancreatitis with calcifications but no acute pancreatitis [facility], , 07/11/2024 4:19 PM
[2024-07-11 16:37] LABS: Appearance,Urine Clear (Clear); Bilirubin,Urine Negative (Negative); Blood,Urine Negative (Negative); Color,Urine Yellow; Glucose,Urine (UA) Negative (Negative); Ketones,Urine Trace (Negative); Leukocyte Esterase,Urine Negative (Negative); Nitrite,Urine Negative (Negative); Protein,Urine Negative (Negative); Specific Gravity,Urine 1.017 (1.001-1.035); Urobilinogen,Urine <2.0 mg/dL (<2.0)
[2024-07-11] MEDS: SODIUM CHLORIDE 0.9% 500 ML 500 ML IV ONE (16:50)
[2024-07-11] MEDS: PANTOPRAZOLE 40 MG/10 ML VIAL IVP STA (16:51)
[2024-07-11] MEDS: HYDROmorphone 0.5 MG/0.5 ML SYRINGE IVP STA (16:53)
[2024-07-11 17:58] VITALS: BP 124/71
== END 2024-07-11 17:57 | disposition home or self-care (01) ==
LOC: EC 13:11
DX: R10.13 Epigastric pain (principal); K86.1 Other chronic pancreatitis; F10.10 Alcohol abuse, uncomplicated; F17.200 Nicotine dependence, unspecified, uncomplicated; Y90.9 Presence of alcohol in blood, level not specified
CPT/HCPCS: 36415; 93005; 80053; 82150; 83605; 83690; 85025; 85610; 85730; 81003; 74177; 99285; 96374; 96375; 96376; 96361; J2405; J1171 ×2; Q9967; J2470